=== PATIENT | male | born 1945 | race Caucasian/White ===

== ENCOUNTER 2020-02-19 09:43 | Observation (INO) | payer MEDICARE, OTHER ==
[2020-02-19] MEDS ORDERED: BABY ASPIRIN 81 MG CHEW PO ONE (10:16)
--- NOTE | 2020-02-19 10:16 | ERPHSYRPT ---
- History of Present Illness Time Seen by Provider: 02/19/20 09:50 Historian: patient Patient Subjective Stated Complaint: Pt states "I have been under allot of stress and I woke up this morning around 0500 with pain in my chest. It feels like I have been hit in the chest with a board." Triage Nursing Assessment: Pt presented alert and oriented X 3, skin pwd. pt ambulates with an upright steady gait, able to speak in clear ufll sentencs pt in no apparent respiratory distress. Physician History: Patient is a 74-year-old male who presents to our ED for evaluation of chest pain. Chest pain started at 5 AM. Patient described pain as an ache that is localized. Pain is associated with shortness of breath and numbness noted to his right arm. Symptoms have been constant. No nausea or vomiting. No diaphoresis. No trauma. No fever. Symptoms are mild to moderate in intensity. No specific worsening or improving factors. Patient's last cardiac stress test was "a long time ago". Patient voices no other complaints or concerns at this time. Timing/Duration: today Activities at Onset: none Quality: aching Location: substernal Chest Pain Radiation: arm Severity of Pain-Max: moderate Severity of Pain-Current: moderate Modifying Factors: Improves With: nothing Associated Symptoms: shortness of breath Prior Chest Pain/Cardiac Workup: no prior chest pain Nitro Today/Relief: no nitro taken today Aspirin Treatment Today: 81 mg x 4 Allergies/Adverse Reactions: No Known Drug Allergies Allergy (Verified 02/19/20 09:56) Home Medications: Colesevelam HCl [Welchol] 3.75 gm PO DAILY 02/19/20 [History] LORazepam [Lorazepam] 2 mg PO DAILY 02/19/20 [History] Tamsulosin HCl 0.4 mg PO DAILY 02/19/20 [History] Triamcinolone 0.1% Cream [Kenalog 0.1% Cream 15 gm] 15 gm TOP DAILY 02/19/20 [History] Hx Tetanus, Diphtheria Vaccination/Date Given: Yes Hx Influenza Vaccination/Date Given: Yes Hx Pneumococcal Vaccination/Date Given: Yes Immunizations Up to Date: Yes Travel Risk - International Travel Have you traveled outside of the country in past 3 weeks: No - Coronavirus Screening Are you exhibiting any of the following symptoms?: No Close contact with a COVID-19 positive Pt in past 14-21 Days: Yes - Review of Systems Constitutional: No Symptoms, No Fever, No Chills Eyes: No Symptoms Ears, Nose, & Throat: No Symptoms Respiratory: No Symptoms, No Cough, No Dyspnea Cardiac: No Symptoms, No Chest Pain, No Edema, No Syncope Abdominal/Gastrointestinal: No Symptoms, No Abdominal Pain, No Nausea, No Vomiting, No Diarrhea Genitourinary Symptoms: No Symptoms, No Dysuria Musculoskeletal: No Symptoms, No Back Pain, No Neck Pain Skin: No Symptoms, No Rash Neurological: No Symptoms, No Dizziness, No Focal Weakness, No Sensory Changes Psychological: No Symptoms Endocrine: No Symptoms Hematologic/Lymphatic: No Symptoms Immunological/Allergic: No Symptoms All Other Systems: Reviewed and Negative - Past Medical History Pertinent Past Medical History: Yes Neurological History: No Pertinent History ENT History: No Pertinent History Cardiac History: No Pertinent History Respiratory History: COPD Endocrine Medical History: No Pertinent History Musculoskeletal History: Arthritis GI Medical History: No Pertinent History History: Renal Disease Psycho-Social History: Anxiety, Depression Male Reproductive Disorders: No Pertinent History - Past Surgical History Past Surgical History: Yes Other Surgical History: salivary gland. cheryle - Social History Smoking Status: Former smoker Exposure to second hand smoke: No Drug Use: none Patient Lives Alone: No - Nursing Vital Signs Nursing Vital Signs: Initial Vital Signs Temperature 98.3 F 02/19/20 09:46 Pulse Rate 90 02/19/20 09:46 Respiratory Rate 22 02/19/20 09:46 Blood Pressure 161/107 02/19/20 09:46 O2 Sat by Pulse Oximetry 100 02/19/20 09:46 Pain Scale Pain Intensity 4 - Physical Exam General Appearance: no apparent distress, alert Eye Exam: PERRL/EOMI, eyes nml inspection Ears, Nose, Throat Exam: normal ENT inspection, moist mucous membranes Neck Exam: normal inspection, non-tender, supple, full range of motion Respiratory Exam: normal breath sounds, lungs clear, No respiratory distress Cardiovascular Exam: regular rate/rhythm, normal heart sounds Gastrointestinal/Abdomen Exam: soft, No tenderness, No mass Back Exam: normal inspection, No CVA tenderness, No vertebral tenderness Extremity Exam: normal inspection, normal range of motion Neurologic Exam: alert, oriented x 3, cooperative, normal mood/affect, sensation nml, No motor deficits Skin Exam: normal color, warm, dry Lymphatic Exam: No adenopathy SpO2 Interpretation: normal SpO2: 100 O2 Delivery: Room Air - Course Nursing assessment & vital signs reviewed: Yes EKG Interpreted by Me: RATE (92), Sinus Rhythm, NORMAL AXIS, NORMAL INTERVALS - Radiology Exams Chest X-ray Interpretation: Teleradiologist Report (No new acute findings) Ordered Tests: Active Orders 24 hr Category Date Time Status Lathe Hand STAT Care 02/19/20 09:46 Active EKG-ER Only STAT Care 02/19/20 09:44 Active IV Insertion STAT Care 02/19/20 09:44 Active Pulse Oximetry (ED) STAT Care 02/19/20 09:44 Active CHEST 1 VIEW (PORTABLE) Stat Exams 02/19/20 09:45 Completed CBC W DIFF Stat Lab 02/19/20 10:32 Completed CMP Stat Lab 02/19/20 10:32 Completed MAGNESIUM Stat Lab 02/19/20 10:32 Completed NT PRO BNP Stat Lab 02/19/20 10:32 Completed TROPONIN Q3H Lab 02/19/20 10:32 Completed TROPONIN Q3H Lab 02/19/20 12:45 Ordered TROPONIN Q3H Lab 02/19/20 15:45 Ordered TROPONIN Q3H Lab 02/19/20 18:45 Ordered TROPONIN Q3H Lab 02/19/20 21:45 Ordered UA W/RFX UR CULTURE Stat Lab 02/19/20 11:24 Ordered Transfer Order Routine Transfer 02/19/20 Ordered Medication Summary Discontinued Medications Generic Name Dose Route Start Last Admin Trade Name Freq PRN Reason Stop Dose Admin Aspirin 324 mg 02/19/20 10:16 02/19/20 10:19 Baby Aspirin 81 Mg Chew PO 02/19/20 10:17 324 mg STAT ONE Administration Aspirin Confirm 02/19/20 10:18 Baby Aspirin 81 Mg Chew Administered 02/19/20 10:19 Dose 324 mg .ROUTE .STK-MED ONE Morphine Sulfate 2 mg 02/19/20 11:45 02/19/20 11:48 Morphine Sulfate 2 Mg Inj IV 02/19/20 11:46 2 mg STAT ONE Administration Morphine Sulfate Confirm 02/19/20 11:47 Morphine Sulfate 2 Mg Inj Administered 02/19/20 11:48 Dose 2 mg .ROUTE .STK-MED ONE Lab/Rad Data: Laboratory Result Diagrams 02/19/20 10:32 02/19/20 10:32 Laboratory Results 02/19/20 02/19/20 02/19/20 Range/Units 11:39 10:32 10:32 WBC (4.0-10.5) K/mm3 RBC (4.1-5.6) M/mm3 Hgb (12.5-18.0) gm/dl Hct (42-50) % MCV (78-100) fl MCH (26-32) pg MCHC (32-36) g/dl RDW (11.5-14.0) % Plt Count (150-450) K/mm3 MPV (7.5-11.0) fl Gran % (36.0-66.0) % Eos # (Auto) (0-0.5) Absolute Lymphs (auto) (1.0-4.6) Absolute Monos (auto) (0.0-1.3) Lymphocytes % (24.0-44.0) % Monocytes % (0.0-12.0) % Eosinophils % (0.00-5.0) % Basophils % (0.0-0.4) % Absolute Granulocytes (1.4-6.9) Basophils # (0-0.4) Sodium 137 (137-145) mmol/L Potassium 4.3 (3.5-5.1) mmol/L Chloride 108 H (98-107) mmol/L Carbon Dioxide 24 (22-30) mmol/L Anion Gap 9.0 (5-15) MEQ/L BUN 23 H (9-20) mg/dL Creatinine 1.43 H (0.66-1.25) mg/dL Estimated GFR 51.4 ML/MIN Glucose 100 (74-106) mg/dL Calcium 9.3 (8.4-10.2) mg/dL Magnesium 2.4 H (1.6-2.3) mg/dL Total Bilirubin 0.50 (0.2-1.3) mg/dL AST 19 (17-59) U/L ALT 14 (0-50) U/L Alkaline Phosphatase 69 (38-126) U/L Troponin I < 0.012 (0.000-0.034) ng/mL NT-Pro-B Natriuret Pep 120 (0-900) pg/mL Serum Total Protein 6.8 (6.3-8.2) g/dL Albumin 3.8 (3.5-5.0) g/dL SARS-CoV-2 (PCR) NEGATIVE (NEGATIVE) 02/19/20 Range/Units 10:32 WBC 9.2 (4.0-10.5) K/mm3 RBC 4.78 (4.1-5.6) M/mm3 Hgb 14.9 (12.5-18.0) gm/dl Hct 45.3 (42-50) % MCV 94.8 (78-100) fl MCH 31.2 (26-32) pg MCHC 32.9 (32-36) g/dl RDW 13.7 (11.5-14.0) % Plt Count 207 (150-450) K/mm3 MPV 9.0 (7.5-11.0) fl Gran % 80.5 H (36.0-66.0) % Eos # (Auto) 0.04 (0-0.5) Absolute Lymphs (auto) 1.03 (1.0-4.6) Absolute Monos (auto) 0.71 (0.0-1.3) Lymphocytes % 11.2 L (24.0-44.0) % Monocytes % 7.7 (0.0-12.0) % Eosinophils % 0.4 (0.00-5.0) % Basophils % 0.2 (0.0-0.4) % Absolute Granulocytes 7.40 H (1.4-6.9) Basophils # 0.02 (0-0.4) Sodium (137-145) mmol/L Potassium (3.5-5.1) mmol/L Chloride (98-107) mmol/L Carbon Dioxide (22-30) mmol/L Anion Gap (5-15) MEQ/L BUN (9-20) mg/dL Creatinine (0.66-1.25) mg/dL Estimated GFR ML/MIN Glucose (74-106) mg/dL Calcium (8.4-10.2) mg/dL Magnesium (1.6-2.3) mg/dL Total Bilirubin (0.2-1.3) mg/dL AST (17-59) U/L ALT (0-50) U/L Alkaline Phosphatase (38-126) U/L Troponin I (0.000-0.034) ng/mL NT-Pro-B Natriuret Pep (0-900) pg/mL Serum Total Protein (6.3-8.2) g/dL Albumin (3.5-5.0) g/dL SARS-CoV-2 (PCR) (NEGATIVE) - Progress Progress: improved Air Movement: good Progress Note: 02/19/20 11:33 Patient reassessed. Chest pain improved. Vitals stable. In light of patient's age symptomology and lack of recent cardiac work-up/cardiac stress test we will admit patient for a cardiac rule out. Plan of care discussed with patient. He agrees to admission to [facility] for further evaluation. Case discussed with Dr. Hernandez covering Dr. Sher who accepts admission to observation. We will COVID test patient prior to transfer to floor. Blood Culture(s) Obtained: No Antibiotics given: No Discussed with Dr.: Federico Will see patient in: hospital (observation) Counseled pt/family regarding: lab results, rad results - Departure Departure Disposition: Observation Clinical Impression: ACS (acute coronary syndrome), Renal insufficiency Condition: Stable Critical Care Time: No Referrals: SONY SHER MD [Primary Care Provider] -
[2020-02-19] MEDS ORDERED: BABY ASPIRIN 81 MG CHEW ONE (10:18)
--- NOTE | 2020-02-19 10:19 | XRAY ---
Indication: Chest pain. Suspect Covid 19 exposure from . Comparison: November 15, 2019. Portable chest again demonstrates normal heart and lungs with incidental tortuous descending aorta. Bony thorax intact again with mild degenerative changes. No new/acute findings.
[2020-02-19 10:41] LABS: BASOPHIL % 0.2 % (0.0-0.4); Basophil (Absolute #) 0.02 (0-0.4); Eosinophil % 0.4 % (0.00-5.0); Eosinophil (Absolute #) 0.04 (0-0.5); Hematocrit 45.3 % (42-50); Hemoglobin 14.9 gm/dl (12.5-18.0); Lymphocyte (Absolute #) 1.03 (1.0-4.6); Lymphocytes % 11.2 % (24.0-44.0); Mean Cell Volume 94.8 fl (78-100); Mean Corpuscular Hemoglobin 31.2 pg (26-32); Mean Corpuscular Hgb Concent. 32.9 g/dl (32-36); Monocyte (Absolute #) 0.71 (0.0-1.3); Monocytes % 7.7 % (0.0-12.0); Neutrophil % 80.5 % (36.0-66.0); Platelet Count 207 K/mm3 (150-450); Red Blood Count 4.78 M/mm3 (4.1-5.6); Red Cell Distribution Width 13.7 % (11.5-14.0); White Blood Count 9.2 K/mm3 (4.0-10.5)
[2020-02-19 10:59] LABS: ALBUMIN 3.8 g/dL (3.5-5.0); BILIRUBIN,TOTAL 0.5 mg/dL (0.2-1.3); Calcium 9.3 mg/dL (8.4-10.2); Creatinine 1 1.43 mg/dL (0.66-1.25); EST GLOMERULAR FILTRATION RATE 51.4 ML/MIN; MAGNESIUM 2.4 mg/dL (1.6-2.3); Potassium 4.3 mmol/L (3.5-5.1); Total Protein 6.8 g/dL (6.3-8.2)
[2020-02-19 11:36] LABS: Appearance CLEAR (CLEAR); Bilirubin NEGATIVE (NEGATIVE); Blood NEGATIVE Ery/ul (0-5); Glucose NEGATIVE (NEGATIVE); Ketones NEGATIVE (NEGATIVE); Leukocyte Esterase NEGATIVE (NEGATIVE); Nitrite NEGATIVE (NEGATIVE); Protein,Urine Dip NEGATIVE (Negative); Specific Gravity 1.008 (1.005-1.025); Urobilinogen NEGATIVE mg/dL (0-1)
[2020-02-19] MEDS ORDERED: MORPHINE SULFATE 2 MG INJ IV ONE (11:45)
[2020-02-19] MEDS ORDERED: MORPHINE SULFATE 2 MG INJ ONE (11:47)
[2020-02-19 13:03] LABS: Bacteria NONE SEEN /HPF (NEGATIVE)
[2020-02-19] MEDS ORDERED: Senokot-S Tablet PO PRN (13:07)
[2020-02-19] MEDS ORDERED: MILK OF MAGNESIA 30 ML PO PRN (13:07)
[2020-02-19] MEDS ORDERED: Zofran 4 MG/2 ML VIAL IV PRN (13:07)
[2020-02-19] MEDS ORDERED: MAALOX ES 30 ML UNIT DOSE PO PRN (13:07)
[2020-02-19] MEDS ORDERED: TYLENOL 325 MG PO PRN (13:07)
[2020-02-19] MEDS ORDERED: GI COCKTAIL 45 ML (Maalox/Lidocaine) PO ONE (20:11)
[2020-02-19] MEDS ORDERED: MAALOX ES 30 ML UNIT DOSE ONE (20:18)
[2020-02-19] MEDS ORDERED: XYLOCAINE HCl Viscous ONE (20:18)
[2020-02-19] MEDS ORDERED: Ativan 1 MG PO SCH (22:00)
[2020-02-19] MEDS ORDERED: Flomax 0.4 MG PO SCH (22:00)
[2020-02-19] MEDS ORDERED: PROTONIX 40 MG IV IV SCH (22:00)
[2020-02-19] MEDS ORDERED: BENADRYL 25 MG CAPSULE PO SCH (22:00)
[2020-02-19] MEDS ORDERED: NON-FORMULARY ITEM (Lorazepam [Lorazepam] 2 MG) PO SCH (22:00)
[2020-02-19] MEDS: Carafate SUSPENSION 1000 MG/10 ML PO SCH (22:10)
[2020-02-20 05:35] LABS: Risk Ratio 3.3
[2020-02-20] MEDS: Carafate SUSPENSION 1000 MG/10 ML PO SCH (06:39)
[2020-02-20 07:04] VITALS: BP 143/74; PULSE 86; O2SAT 96
--- NOTE | 2020-02-20 08:30 | PCM.SSS ---
History of Present Illness - Chief Complaint Chief Complaint: ACS, Renal Insufficiency History of Present Illness: is a 74 year old male who woke yesterday morning at 5am with pain in his chest, felt a soreness as if he had been hit with a board. He was short of breath and nauseated, no vomiting and no diaphoresis. He still has a mild dull ache but no shortness of breath, no cough, no fever, no oxygen requirement. He admits that he feels like he had a panic attack, his has been battling covid for 10 weeks, has had multiple strokes, kidney failure and has been critically ill. - Review of Systems Constitutional: No Fever, No Chills Respiratory: No Cough, No Short Of Breath Cardiac: Chest Pain Abdominal/Gastrointestinal: No Abdominal Pain, No Nausea, No Vomiting, No Diarrhea Skin: No Symptoms, No Rash All Other Systems: Reviewed and Negative Medications & Allergies Home Medications: Home Medication List Colesevelam HCl [Welchol] 1,875 mg PO DAILY 02/19/20 [History Confirmed 02/19/20] Diphenhydramine HCl 25 mg [Benadryl 25 mg Capsule] 25 mg PO QHS 02/19/20 [History Confirmed 02/19/20] LORazepam [Lorazepam] 2 mg PO QHS 02/19/20 [History Confirmed 02/19/20] Tamsulosin HCl 0.4 mg PO QHS 02/19/20 [History Confirmed 02/19/20] Triamcinolone 0.1% Cream [Kenalog 0.1% Cream 15 gm] 15 gm TOP DAILY 02/19/20 [History Confirmed 02/19/20] Escitalopram Oxalate 10 mg [Lexapro 10 MG] 10 mg PO DAILY #30 tablet 02/20/20 [Rx] Allergies/Adverse Reactions: Allergies Allergy/AdvReac Type Severity Reaction Status Date / Time No Known Drug Allergies Allergy Verified 02/19/20 09:56 - Past Medical History Past Medical History: Yes Neurological History: No Pertinent History ENT History: No Pertinent History Cardiac History: No Pertinent History Respiratory History: COPD Endocrine Medical History: No Pertinent History Musculoskelatal History: Arthritis GI Medical History: No Pertinent History History: Renal Disease Pyscho-Social History: Anxiety, Depression Male Reproductive Disorders: No Pertinent History - Past Surgical History Past Surgical History: Yes Neuro Surgical History: No Pertinent History Cardiac History: No Pertinent History Respiratory Surgery: No Pertinent History GI Surgical History: Cholecystectomy Genitourinary Surgical Hx: No Pertinent History Musculskeletal Surgical Hx: No Pertinent History Male Surgical History: No Pertinent History Other Surgical History: salivary gland - Social History Smoking Status: Former smoker Exposure to second hand smoke: No Alcohol: None Drug Use: none - Physical Exam Vital Signs: Vital Signs - 24 hr Temp Pulse Pulse Resp BP Pulse Ox 02/20/20 07:02 99.4 F 86 18 143/74 96 02/20/20 04:00 98.0 F 90 18 140/75 97 02/19/20 23:41 98.9 F 89 18 105/58 97 02/19/20 20:00 98.2 F 81 18 119/67 98 02/19/20 16:00 99.0 F 87 18 132/74 98 02/19/20 14:06 98.2 F 58 L 16 104/58 100 02/19/20 13:30 98.0 F 82 20 143/70 100 02/19/20 13:28 98.0 F 82 20 143/70 100 02/19/20 13:20 98.2 F 83 143/70 100 02/19/20 12:58 100 02/19/20 12:30 83 20 158/112 98 02/19/20 11:41 98.2 F 82 20 147/101 98 02/19/20 10:47 98.2 F 82 20 154/98 97 02/19/20 09:46 98.3 F 95 H 90 22 161/107 100 General Appearance: no apparent distress, alert, anxiety Neurologic Exam: alert, oriented x 3 Respiratory Exam: normal breath sounds, lungs clear, No respiratory distress Cardiovascular Exam: regular rate/rhythm, normal heart sounds, normal peripheral pulses Gastrointestinal/Abdomen Exam: soft, normal bowel sounds, No tenderness, No mass Results - Labs Lab/Micro Results: Lab Results-Last 24 Hours 02/19/20 02/19/20 02/19/20 Range/Units 10:32 10:32 10:32 WBC 9.2 (4.0-10.5) K/mm3 RBC 4.78 (4.1-5.6) M/mm3 Hgb 14.9 (12.5-18.0) gm/dl Hct 45.3 (42-50) % MCV 94.8 (78-100) fl MCH 31.2 (26-32) pg MCHC 32.9 (32-36) g/dl RDW 13.7 (11.5-14.0) % Plt Count 207 (150-450) K/mm3 MPV 9.0 (7.5-11.0) fl Gran % 80.5 H (36.0-66.0) % Eos # (Auto) 0.04 (0-0.5) Absolute Lymphs (auto) 1.03 (1.0-4.6) Absolute Monos (auto) 0.71 (0.0-1.3) Lymphocytes % 11.2 L (24.0-44.0) % Monocytes % 7.7 (0.0-12.0) % Eosinophils % 0.4 (0.00-5.0) % Basophils % 0.2 (0.0-0.4) % Absolute Granulocytes 7.40 H (1.4-6.9) Basophils # 0.02 (0-0.4) Sodium 137 (137-145) mmol/L Potassium 4.3 (3.5-5.1) mmol/L Chloride 108 H (98-107) mmol/L Carbon Dioxide 24 (22-30) mmol/L Anion Gap 9.0 (5-15) MEQ/L BUN 23 H (9-20) mg/dL Creatinine 1.43 H (0.66-1.25) mg/dL Estimated GFR 51.4 ML/MIN Glucose 100 (74-106) mg/dL Calcium 9.3 (8.4-10.2) mg/dL Magnesium 2.4 H (1.6-2.3) mg/dL Total Bilirubin 0.50 (0.2-1.3) mg/dL AST 19 (17-59) U/L ALT 14 (0-50) U/L Alkaline Phosphatase 69 (38-126) U/L Troponin I < 0.012 (0.000-0.034) ng/mL NT-Pro-B Natriuret Pep 120 (0-900) pg/mL Serum Total Protein 6.8 (6.3-8.2) g/dL Albumin 3.8 (3.5-5.0) g/dL Triglycerides (30-150) mg/dL Cholesterol (50-200) mg/dL LDL Cholesterol (30-100) mg/dL HDL Cholesterol (40-60) mg/dL Heart Disease Risk Ratio Urine Color (YELLOW) Urine Appearance (CLEAR) Urine pH (5-6) Ur Specific Dexter (1.005-1.025) Urine Protein (Negative) Urine Ketones (NEGATIVE) Urine Blood (0-5) Victoriano/ul Urine Nitrite (NEGATIVE) Urine Bilirubin (NEGATIVE) Urine Urobilinogen (0-1) mg/dL Ur Leukocyte Esterase (NEGATIVE) Urine WBC (Auto) (0-5) /HPF Urine RBC (Auto) (0-2) /HPF U Epithel Cells (Auto) (FEW) /HPF Urine Bacteria (Auto) (NEGATIVE) /HPF Urine Culture Reflexed (NO) Urine Glucose (NEGATIVE) mg/dL SARS-CoV-2 (PCR) (NEGATIVE) 02/19/20 02/19/20 02/19/20 Range/Units 11:24 11:39 12:50 WBC (4.0-10.5) K/mm3 RBC (4.1-5.6) M/mm3 Hgb (12.5-18.0) gm/dl Hct (42-50) % MCV (78-100) fl MCH (26-32) pg MCHC (32-36) g/dl RDW (11.5-14.0) % Plt Count (150-450) K/mm3 MPV (7.5-11.0) fl Gran % (36.0-66.0) % Eos # (Auto) (0-0.5) Absolute Lymphs (auto) (1.0-4.6) Absolute Monos (auto) (0.0-1.3) Lymphocytes % (24.0-44.0) % Monocytes % (0.0-12.0) % Eosinophils % (0.00-5.0) % Basophils % (0.0-0.4) % Absolute Granulocytes (1.4-6.9) Basophils # (0-0.4) Sodium (137-145) mmol/L Potassium (3.5-5.1) mmol/L Chloride (98-107) mmol/L Carbon Dioxide (22-30) mmol/L Anion Gap (5-15) MEQ/L BUN (9-20) mg/dL Creatinine (0.66-1.25) mg/dL Estimated GFR ML/MIN Glucose (74-106) mg/dL Calcium (8.4-10.2) mg/dL Magnesium (1.6-2.3) mg/dL Total Bilirubin (0.2-1.3) mg/dL AST (17-59) U/L ALT (0-50) U/L Alkaline Phosphatase (38-126) U/L Troponin I < 0.012 (0.000-0.034) ng/mL NT-Pro-B Natriuret Pep (0-900) pg/mL Serum Total Protein (6.3-8.2) g/dL Albumin (3.5-5.0) g/dL Triglycerides (30-150) mg/dL Cholesterol (50-200) mg/dL LDL Cholesterol (30-100) mg/dL HDL Cholesterol (40-60) mg/dL Heart Disease Risk Ratio Urine Color YELLOW (YELLOW) Urine Appearance CLEAR (CLEAR) Urine pH 7.0 (5-6) Ur Specific Dexter 1.008 (1.005-1.025) Urine Protein NEGATIVE (Negative) Urine Ketones NEGATIVE (NEGATIVE) Urine Blood NEGATIVE (0-5) Victoriano/ul Urine Nitrite NEGATIVE (NEGATIVE) Urine Bilirubin NEGATIVE (NEGATIVE) Urine Urobilinogen NEGATIVE (0-1) mg/dL Ur Leukocyte Esterase NEGATIVE (NEGATIVE) Urine WBC (Auto) NONE (0-5) /HPF Urine RBC (Auto) NONE (0-2) /HPF U Epithel Cells (Auto) NONE (FEW) /HPF Urine Bacteria (Auto) NONE SEEN (NEGATIVE) /HPF Urine Culture Reflexed NO (NO) Urine Glucose NEGATIVE (NEGATIVE) mg/dL SARS-CoV-2 (PCR) NEGATIVE (NEGATIVE) 02/19/20 02/19/20 02/19/20 Range/Units 15:25 19:15 21:44 WBC (4.0-10.5) K/mm3 RBC (4.1-5.6) M/mm3 Hgb (12.5-18.0) gm/dl Hct (42-50) % MCV (78-100) fl MCH (26-32) pg MCHC (32-36) g/dl RDW (11.5-14.0) % Plt Count (150-450) K/mm3 MPV (7.5-11.0) fl Gran % (36.0-66.0) % Eos # (Auto) (0-0.5) Absolute Lymphs (auto) (1.0-4.6) Absolute Monos (auto) (0.0-1.3) Lymphocytes % (24.0-44.0) % Monocytes % (0.0-12.0) % Eosinophils % (0.00-5.0) % Basophils % (0.0-0.4) % Absolute Granulocytes (1.4-6.9) Basophils # (0-0.4) Sodium (137-145) mmol/L Potassium (3.5-5.1) mmol/L Chloride (98-107) mmol/L Carbon Dioxide (22-30) mmol/L Anion Gap (5-15) MEQ/L BUN (9-20) mg/dL Creatinine (0.66-1.25) mg/dL Estimated GFR ML/MIN Glucose (74-106) mg/dL Calcium (8.4-10.2) mg/dL Magnesium (1.6-2.3) mg/dL Total Bilirubin (0.2-1.3) mg/dL AST (17-59) U/L ALT (0-50) U/L Alkaline Phosphatase (38-126) U/L Troponin I < 0.012 < 0.012 < 0.012 (0.000-0.034) ng/mL NT-Pro-B Natriuret Pep (0-900) pg/mL Serum Total Protein (6.3-8.2) g/dL Albumin (3.5-5.0) g/dL Triglycerides (30-150) mg/dL Cholesterol (50-200) mg/dL LDL Cholesterol (30-100) mg/dL HDL Cholesterol (40-60) mg/dL Heart Disease Risk Ratio Urine Color (YELLOW) Urine Appearance (CLEAR) Urine pH (5-6) Ur Specific Dexter (1.005-1.025) Urine Protein (Negative) Urine Ketones (NEGATIVE) Urine Blood (0-5) Victoriano/ul Urine Nitrite (NEGATIVE) Urine Bilirubin (NEGATIVE) Urine Urobilinogen (0-1) mg/dL Ur Leukocyte Esterase (NEGATIVE) Urine WBC (Auto) (0-5) /HPF Urine RBC (Auto) (0-2) /HPF U Epithel Cells (Auto) (FEW) /HPF Urine Bacteria (Auto) (NEGATIVE) /HPF Urine Culture Reflexed (NO) Urine Glucose (NEGATIVE) mg/dL SARS-CoV-2 (PCR) (NEGATIVE) 02/20/20 Range/Units 05:02 WBC (4.0-10.5) K/mm3 RBC (4.1-5.6) M/mm3 Hgb (12.5-18.0) gm/dl Hct (42-50) % MCV (78-100) fl MCH (26-32) pg MCHC (32-36) g/dl RDW (11.5-14.0) % Plt Count (150-450) K/mm3 MPV (7.5-11.0) fl Gran % (36.0-66.0) % Eos # (Auto) (0-0.5) Absolute Lymphs (auto) (1.0-4.6) Absolute Monos (auto) (0.0-1.3) Lymphocytes % (24.0-44.0) % Monocytes % (0.0-12.0) % Eosinophils % (0.00-5.0) % Basophils % (0.0-0.4) % Absolute Granulocytes (1.4-6.9) Basophils # (0-0.4) Sodium (137-145) mmol/L Potassium (3.5-5.1) mmol/L Chloride (98-107) mmol/L Carbon Dioxide (22-30) mmol/L Anion Gap (5-15) MEQ/L BUN (9-20) mg/dL Creatinine (0.66-1.25) mg/dL Estimated GFR ML/MIN Glucose (74-106) mg/dL Calcium (8.4-10.2) mg/dL Magnesium (1.6-2.3) mg/dL Total Bilirubin (0.2-1.3) mg/dL AST (17-59) U/L ALT (0-50) U/L Alkaline Phosphatase (38-126) U/L Troponin I (0.000-0.034) ng/mL NT-Pro-B Natriuret Pep (0-900) pg/mL Serum Total Protein (6.3-8.2) g/dL Albumin (3.5-5.0) g/dL Triglycerides 78 (30-150) mg/dL Cholesterol 146 (50-200) mg/dL LDL Cholesterol 76 (30-100) mg/dL HDL Cholesterol 45 (40-60) mg/dL Heart Disease Risk Ratio 3.3 Urine Color (YELLOW) Urine Appearance (CLEAR) Urine pH (5-6) Ur Specific Dexter (1.005-1.025) Urine Protein (Negative) Urine Ketones (NEGATIVE) Urine Blood (0-5) Victoriano/ul Urine Nitrite (NEGATIVE) Urine Bilirubin (NEGATIVE) Urine Urobilinogen (0-1) mg/dL Ur Leukocyte Esterase (NEGATIVE) Urine WBC (Auto) (0-5) /HPF Urine RBC (Auto) (0-2) /HPF U Epithel Cells (Auto) (FEW) /HPF Urine Bacteria (Auto) (NEGATIVE) /HPF Urine Culture Reflexed (NO) Urine Glucose (NEGATIVE) mg/dL SARS-CoV-2 (PCR) (NEGATIVE) - Radiology Impressions Radiology Exams & Impressions: Radiology Procedures Category Date Time Status CHEST 1 VIEW (PORTABLE) Stat Exams 02/19/20 09:45 Completed - Other Procedures and Tests Respiratory Therapy 02/20/20 05:00 EKG DAILY 02/21/20 05:00 EKG DAILY 02/22/20 05:00 EKG DAILY Assessment/Plan (1) Chest pain Current Visit: Yes Status: Acute Assessment & Plan: SD ruled out, lipids are good. recommend outpatient stress test but symptoms appear anxiety related with current situation Code(s): R07.9 - CHEST PAIN, UNSPECIFIED (2) Anxiety Current Visit: Yes Status: Acute Assessment & Plan: Soy appears anxious and depressed and ascribes to feeling depressed. will start on lexapro and f/u in the office Code(s): F41.9 - ANXIETY DISORDER, UNSPECIFIED Hospital Summary - Vitals & Intake/Output Vital Signs: Vital Signs Temperature 99.4 F 02/20/20 07:02 Pulse Rate 86 02/20/20 07:02 Respiratory Rate 18 02/20/20 07:02 Blood Pressure 143/74 02/20/20 07:02 O2 Sat by Pulse Oximetry 96 02/20/20 07:02 Intake & Output: Intake & Output 10/18/20 10/19/20 10/20/20 10/21/20 11:59 11:59 11:59 11:59 Intake Total 240 Balance 240 Weight 74.933 kg 71.6 kg - Lab Result Diagrams: 02/19/20 10:32 02/19/20 10:32 Lab Results-Last 24 Hrs: Lab Results-Last 24 Hours 02/19/20 02/19/20 02/19/20 Range/Units 10:32 10:32 10:32 WBC 9.2 (4.0-10.5) K/mm3 RBC 4.78 (4.1-5.6) M/mm3 Hgb 14.9 (12.5-18.0) gm/dl Hct 45.3 (42-50) % MCV 94.8 (78-100) fl MCH 31.2 (26-32) pg MCHC 32.9 (32-36) g/dl RDW 13.7 (11.5-14.0) % Plt Count 207 (150-450) K/mm3 MPV 9.0 (7.5-11.0) fl Gran % 80.5 H (36.0-66.0) % Eos # (Auto) 0.04 (0-0.5) Absolute Lymphs (auto) 1.03 (1.0-4.6) Absolute Monos (auto) 0.71 (0.0-1.3) Lymphocytes % 11.2 L (24.0-44.0) % Monocytes % 7.7 (0.0-12.0) % Eosinophils % 0.4 (0.00-5.0) % Basophils % 0.2 (0.0-0.4) % Absolute Granulocytes 7.40 H (1.4-6.9) Basophils # 0.02 (0-0.4) Sodium 137 (137-145) mmol/L Potassium 4.3 (3.5-5.1) mmol/L Chloride 108 H (98-107) mmol/L Carbon Dioxide 24 (22-30) mmol/L Anion Gap 9.0 (5-15) MEQ/L BUN 23 H (9-20) mg/dL Creatinine 1.43 H (0.66-1.25) mg/dL Estimated GFR 51.4 ML/MIN Glucose 100 (74-106) mg/dL Calcium 9.3 (8.4-10.2) mg/dL Magnesium 2.4 H (1.6-2.3) mg/dL Total Bilirubin 0.50 (0.2-1.3) mg/dL AST 19 (17-59) U/L ALT 14 (0-50) U/L Alkaline Phosphatase 69 (38-126) U/L Troponin I < 0.012 (0.000-0.034) ng/mL NT-Pro-B Natriuret Pep 120 (0-900) pg/mL Serum Total Protein 6.8 (6.3-8.2) g/dL Albumin 3.8 (3.5-5.0) g/dL Triglycerides (30-150) mg/dL Cholesterol (50-200) mg/dL LDL Cholesterol (30-100) mg/dL HDL Cholesterol (40-60) mg/dL Heart Disease Risk Ratio Urine Color (YELLOW) Urine Appearance (CLEAR) Urine pH (5-6) Ur Specific Dexter (1.005-1.025) Urine Protein (Negative) Urine Ketones (NEGATIVE) Urine Blood (0-5) Victoriano/ul Urine Nitrite (NEGATIVE) Urine Bilirubin (NEGATIVE) Urine Urobilinogen (0-1) mg/dL Ur Leukocyte Esterase (NEGATIVE) Urine WBC (Auto) (0-5) /HPF Urine RBC (Auto) (0-2) /HPF U Epithel Cells (Auto) (FEW) /HPF Urine Bacteria (Auto) (NEGATIVE) /HPF Urine Culture Reflexed (NO) Urine Glucose (NEGATIVE) mg/dL SARS-CoV-2 (PCR) (NEGATIVE) 02/19/20 02/19/20 02/19/20 Range/Units 11:24 11:39 12:50 WBC (4.0-10.5) K/mm3 RBC (4.1-5.6) M/mm3 Hgb (12.5-18.0) gm/dl Hct (42-50) % MCV (78-100) fl MCH (26-32) pg MCHC (32-36) g/dl RDW (11.5-14.0) % Plt Count (150-450) K/mm3 MPV (7.5-11.0) fl Gran % (36.0-66.0) % Eos # (Auto) (0-0.5) Absolute Lymphs (auto) (1.0-4.6) Absolute Monos (auto) (0.0-1.3) Lymphocytes % (24.0-44.0) % Monocytes % (0.0-12.0) % Eosinophils % (0.00-5.0) % Basophils % (0.0-0.4) % Absolute Granulocytes (1.4-6.9) Basophils # (0-0.4) Sodium (137-145) mmol/L Potassium (3.5-5.1) mmol/L Chloride (98-107) mmol/L Carbon Dioxide (22-30) mmol/L Anion Gap (5-15) MEQ/L BUN (9-20) mg/dL Creatinine (0.66-1.25) mg/dL Estimated GFR ML/MIN Glucose (74-106) mg/dL Calcium (8.4-10.2) mg/dL Magnesium (1.6-2.3) mg/dL Total Bilirubin (0.2-1.3) mg/dL AST (17-59) U/L ALT (0-50) U/L Alkaline Phosphatase (38-126) U/L Troponin I < 0.012 (0.000-0.034) ng/mL NT-Pro-B Natriuret Pep (0-900) pg/mL Serum Total Protein (6.3-8.2) g/dL Albumin (3.5-5.0) g/dL Triglycerides (30-150) mg/dL Cholesterol (50-200) mg/dL LDL Cholesterol (30-100) mg/dL HDL Cholesterol (40-60) mg/dL Heart Disease Risk Ratio Urine Color YELLOW (YELLOW) Urine Appearance CLEAR (CLEAR) Urine pH 7.0 (5-6) Ur Specific Dexter 1.008 (1.005-1.025) Urine Protein NEGATIVE (Negative) Urine Ketones NEGATIVE (NEGATIVE) Urine Blood NEGATIVE (0-5) Victoriano/ul Urine Nitrite NEGATIVE (NEGATIVE) Urine Bilirubin NEGATIVE (NEGATIVE) Urine Urobilinogen NEGATIVE (0-1) mg/dL Ur Leukocyte Esterase NEGATIVE (NEGATIVE) Urine WBC (Auto) NONE (0-5) /HPF Urine RBC (Auto) NONE (0-2) /HPF U Epithel Cells (Auto) NONE (FEW) /HPF Urine Bacteria (Auto) NONE SEEN (NEGATIVE) /HPF Urine Culture Reflexed NO (NO) Urine Glucose NEGATIVE (NEGATIVE) mg/dL SARS-CoV-2 (PCR) NEGATIVE (NEGATIVE) 02/19/20 02/19/20 02/19/20 Range/Units 15:25 19:15 21:44 WBC (4.0-10.5) K/mm3 RBC (4.1-5.6) M/mm3 Hgb (12.5-18.0) gm/dl Hct (42-50) % MCV (78-100) fl MCH (26-32) pg MCHC (32-36) g/dl RDW (11.5-14.0) % Plt Count (150-450) K/mm3 MPV (7.5-11.0) fl Gran % (36.0-66.0) % Eos # (Auto) (0-0.5) Absolute Lymphs (auto) (1.0-4.6) Absolute Monos (auto) (0.0-1.3) Lymphocytes % (24.0-44.0) % Monocytes % (0.0-12.0) % Eosinophils % (0.00-5.0) % Basophils % (0.0-0.4) % Absolute Granulocytes (1.4-6.9) Basophils # (0-0.4) Sodium (137-145) mmol/L Potassium (3.5-5.1) mmol/L Chloride (98-107) mmol/L Carbon Dioxide (22-30) mmol/L Anion Gap (5-15) MEQ/L BUN (9-20) mg/dL Creatinine (0.66-1.25) mg/dL Estimated GFR ML/MIN Glucose (74-106) mg/dL Calcium (8.4-10.2) mg/dL Magnesium (1.6-2.3) mg/dL Total Bilirubin (0.2-1.3) mg/dL AST (17-59) U/L ALT (0-50) U/L Alkaline Phosphatase (38-126) U/L Troponin I < 0.012 < 0.012 < 0.012 (0.000-0.034) ng/mL NT-Pro-B Natriuret Pep (0-900) pg/mL Serum Total Protein (6.3-8.2) g/dL Albumin (3.5-5.0) g/dL Triglycerides (30-150) mg/dL Cholesterol (50-200) mg/dL LDL Cholesterol (30-100) mg/dL HDL Cholesterol (40-60) mg/dL Heart Disease Risk Ratio Urine Color (YELLOW) Urine Appearance (CLEAR) Urine pH (5-6) Ur Specific Dexter (1.005-1.025) Urine Protein (Negative) Urine Ketones (NEGATIVE) Urine Blood (0-5) Victoriano/ul Urine Nitrite (NEGATIVE) Urine Bilirubin (NEGATIVE) Urine Urobilinogen (0-1) mg/dL Ur Leukocyte Esterase (NEGATIVE) Urine WBC (Auto) (0-5) /HPF Urine RBC (Auto) (0-2) /HPF U Epithel Cells (Auto) (FEW) /HPF Urine Bacteria (Auto) (NEGATIVE) /HPF Urine Culture Reflexed (NO) Urine Glucose (NEGATIVE) mg/dL SARS-CoV-2 (PCR) (NEGATIVE) 02/20/20 Range/Units 05:02 WBC (4.0-10.5) K/mm3 RBC (4.1-5.6) M/mm3 Hgb (12.5-18.0) gm/dl Hct (42-50) % MCV (78-100) fl MCH (26-32) pg MCHC (32-36) g/dl RDW (11.5-14.0) % Plt Count (150-450) K/mm3 MPV (7.5-11.0) fl Gran % (36.0-66.0) % Eos # (Auto) (0-0.5) Absolute Lymphs (auto) (1.0-4.6) Absolute Monos (auto) (0.0-1.3) Lymphocytes % (24.0-44.0) % Monocytes % (0.0-12.0) % Eosinophils % (0.00-5.0) % Basophils % (0.0-0.4) % Absolute Granulocytes (1.4-6.9) Basophils # (0-0.4) Sodium (137-145) mmol/L Potassium (3.5-5.1) mmol/L Chloride (98-107) mmol/L Carbon Dioxide (22-30) mmol/L Anion Gap (5-15) MEQ/L BUN (9-20) mg/dL Creatinine (0.66-1.25) mg/dL Estimated GFR ML/MIN Glucose (74-106) mg/dL Calcium (8.4-10.2) mg/dL Magnesium (1.6-2.3) mg/dL Total Bilirubin (0.2-1.3) mg/dL AST (17-59) U/L ALT (0-50) U/L Alkaline Phosphatase (38-126) U/L Troponin I (0.000-0.034) ng/mL NT-Pro-B Natriuret Pep (0-900) pg/mL Serum Total Protein (6.3-8.2) g/dL Albumin (3.5-5.0) g/dL Triglycerides 78 (30-150) mg/dL Cholesterol 146 (50-200) mg/dL LDL Cholesterol 76 (30-100) mg/dL HDL Cholesterol 45 (40-60) mg/dL Heart Disease Risk Ratio 3.3 Urine Color (YELLOW) Urine Appearance (CLEAR) Urine pH (5-6) Ur Specific Dexter (1.005-1.025) Urine Protein (Negative) Urine Ketones (NEGATIVE) Urine Blood (0-5) Victoriano/ul Urine Nitrite (NEGATIVE) Urine Bilirubin (NEGATIVE) Urine Urobilinogen (0-1) mg/dL Ur Leukocyte Esterase (NEGATIVE) Urine WBC (Auto) (0-5) /HPF Urine RBC (Auto) (0-2) /HPF U Epithel Cells (Auto) (FEW) /HPF Urine Bacteria (Auto) (NEGATIVE) /HPF Urine Culture Reflexed (NO) Urine Glucose (NEGATIVE) mg/dL SARS-CoV-2 (PCR) (NEGATIVE) - Radiology Exams Ordered Rad Exams-Entire Visit: Radiology Procedures Category Date Time Status CHEST 1 VIEW (PORTABLE) Stat Exams 02/19/20 09:45 Completed - Procedures and Test Procedures and Tests throughout Hospitalization: Therapy Orders & Screens 02/19/20 13:07 EKG [id number],PRN Comment: 02/19/20 19:44 EKG ONCE Comment: Diagnosis: ACS, Renal Insufficiency 02/20/20 05:00 EKG DAILY Comment: Diagnosis: ACS, Renal Insufficiency 02/21/20 05:00 EKG DAILY Comment: Diagnosis: ACS, Renal Insufficiency 02/22/20 05:00 EKG DAILY Comment: Diagnosis: ACS, Renal Insufficiency - Discharge Disposition: Home, Self-Care Condition: Stable Prescriptions: New Escitalopram Oxalate 10 mg [Lexapro 10 MG] 10 mg PO DAILY #30 tablet Continue Triamcinolone 0.1% Cream [Kenalog 0.1% Cream 15 gm] 15 gm TOP DAILY Tamsulosin HCl 0.4 mg PO QHS LORazepam [Lorazepam] 2 mg PO QHS Colesevelam HCl [Welchol] 1,875 mg PO DAILY Diphenhydramine HCl 25 mg [Benadryl 25 mg Capsule] 25 mg PO QHS Follow up with: SONY SHER MD [Primary Care Provider] - 1 Week
[2020-02-20] MEDS ORDERED: COLESEVELAM HCL PO SCH (10:00)
[2020-02-20] MEDS ORDERED: COLESEVELAM HCL 1875 MG PO SCH (10:00)
[2020-02-20] MEDS ORDERED: KENALOG 0.1% CREAM 15 GM TOP SCH (10:00)
== END 2020-02-20 09:10 | disposition home or self-care (01) ==
LOC: ED 09:43 → MED SURG 13:06
PROVIDERS: ADMIT Family Medicine; ATTEND Family Medicine
DX: R07.9 Chest pain, unspecified (principal); F41.9 Anxiety disorder, unspecified; R11.0 Nausea; R06.02 Shortness of breath; J44.9 Chronic obstructive pulmonary disease, unspecified; Z79.899 Other long term (current) drug therapy
CPT/HCPCS: 36000; 36415; 71045; 80053; 80061; 81001; 83721; 83735; 83880; 84484; 85025; 93005; 93041; 94760; 96374; 99285; G0378; U0003; J2270; A9270-GY

== ENCOUNTER 2020-08-07 06:09 | Day surgery (SDC) | payer MEDICARE, OTHER ==
[2020-08-07] MEDS ORDERED: Lactated Ringers 1,000 ML IV SCH (06:30)
[2020-08-07] MEDS ORDERED: DIPRIVAN 200 MG/20 ML IV ONE (07:51)
[2020-08-07] MEDS ORDERED: Lactated Ringers 1,000 ML IV ONE (08:37)
[2020-08-07 09:11] VITALS: O2SAT 98
[2020-08-07 09:17] VITALS: BP 128/71; PULSE 69
--- NOTE | 2020-08-07 09:34 | OP ---
SURGERY DATE/TIME: 08/07/2020 0806 PREOPERATIVE DIAGNOSIS: Positive Cologuard. POSTOPERATIVE DIAGNOSES: 1) Normal colon. 2) Sigmoid diverticulosis. PROCEDURE: Diagnostic colonoscopy. SURGEON: Waqas Montelongo M.D. ANESTHESIA: MAC by Patrick Copeland CRNA. ESTIMATED BLOOD LOSS: None. SPECIMENS: None. DESCRIPTION OF PROCEDURE: After informed written consent was obtained, the patient was taken to the endoscopy suite. He underwent monitored anesthesia and was titrated to desired level of consciousness. A digital rectal exam showed normal sphincter tone and no internal lesions. The scope was inserted into the rectum and sequentially the entire colonic mucosa was traversed. The level of cecum was reached and verified with direct visualization of ileocecal valve. Upon entry there were scattered diverticula mostly in the sigmoid colon which were encountered and noted but no other mucosal abnormalities. Upon withdrawal careful mucosal inspection revealed no gross abnormalities. No polyps or other mucosal abnormalities were encountered other than diverticulosis. Again, most was centered in the sigmoid colon. There was no obvious bleeding and no other abnormalities were encountered. Prior to withdrawal retroflexion was performed and showed no internal lesions. The scope was removed and the patient was transferred to the recovery room in good condition.
== END 2020-08-07 08:27 | disposition home or self-care (01) ==
LOC: SDC 06:09
PROVIDERS: ATTEND Family Medicine
DX: K57.30 Diverticulosis of large intestine without perforation or abscess without bleeding (principal); R19.5 Other fecal abnormalities; I10 Essential (primary) hypertension; Z79.899 Other long term (current) drug therapy
CPT/HCPCS: 99100; J2704

== ENCOUNTER 2020-09-25 06:10 | Day surgery (SDC) | payer MEDICARE, OTHER ==
[2020-09-25] MEDS ORDERED: Lactated Ringers 1,000 ML IV SCH (06:30)
[2020-09-25] MEDS ORDERED: Versed 2 MG/2 ML Injection ONE (07:56)
[2020-09-25] MEDS ORDERED: DIPRIVAN 200 MG/20 ML IV ONE (07:56)
--- NOTE | 2020-09-25 09:04 | OP ---
SURGERY DATE/TIME: 09/25/2020 0805 PREOPERATIVE DIAGNOSIS: Epigastric abdominal pain. POSTOPERATIVE DIAGNOSIS: Hiatal hernia. PROCEDURE: EGD. SURGEON: Waqas Montelongo M.D. ANESTHESIA: MAC by Patrick Copeland CRNA. ESTIMATED BLOOD LOSS: None. SPECIMENS: None. DESCRIPTION OF PROCEDURE: After informed written consent was obtained, the patient was taken to the endoscopy suite. He was placed in left lateral decubitus position and had a bite block was inserted. Anesthesia was titrated to the desired level of consciousness and the endoscope was inserted into the posterior oropharynx. Under direct visualization the esophagus was traversed. There were normal appearance of the esophageal mucosa with no lesions or abnormalities were encountered. Upon entering the stomach, normal rugated gastric mucosa revealed no obvious lesions or abnormalities. The pylorus was traversed and the duodenum had a normal mucosal appearance. No ulcerations or evidence of abnormalities were encountered. Again upon withdrawal, the gastric mucosa appeared within normal limits. There was a small hiatal hernia appreciable upon withdrawal through the gastroesophageal junction. There were no obvious mucosal changes to the gastroesophageal junction or the esophageal mucosa distally. The scope was removed and the patient was transferred to the recovery room in good condition.
[2020-09-25 09:21] VITALS: O2SAT 98
[2020-09-25 09:34] VITALS: BP 125/84; PULSE 69
== END 2020-09-25 09:30 | disposition home or self-care (01) ==
LOC: SDC 06:10
PROVIDERS: ATTEND Family Medicine
DX: K44.9 Diaphragmatic hernia without obstruction or gangrene (principal); I10 Essential (primary) hypertension; N40.0 Benign prostatic hyperplasia without lower urinary tract symptoms; Z79.899 Other long term (current) drug therapy
CPT/HCPCS: 99100; J2250; J2704

== ENCOUNTER 2023-06-22 10:06 | Emergency (ER) | payer MEDICARE, OTHER ==
[2023-06-22 11:01] VITALS: PULSE 74; RESP 18; TEMP 97.4; O2SAT 100
[2023-06-22] MEDS ORDERED: TYLENOL 325 MG ONE (11:16)
[2023-06-22] MEDS: TYLENOL 325 MG PO STA (11:17)
--- NOTE | 2023-06-22 12:02 | XRAY ---
Indication: Pain. Two-dimensional sonogram and color Doppler imaging IJVs vessels were later performed. Comparison: April 14, 2023 Popliteal vein again demonstrates nonoccluding thrombus grossly unchanged. Previous thrombus in posterior tibial vein has resolved. No thrombus in the remaining deep venous vessels right leg including greater saphenous vein. Patent veins demonstrate normal compressibility and normal venous waveforms. Impression: Again nonoccluding DVT popliteal vein.
--- NOTE | 2023-06-22 12:55 | ERPHSYRPT ---
- History of Present Illness Time Seen by Provider: 06/22/23 10:50 Source: patient Exam Limitations: no limitations Patient Subjective Stated Complaint: pt here for right leg pain for couple days, has hx of DVT in that leg after a hip surgery and is not longer taking a blood thinner Triage Nursing Assessment: pt alert, walked in, resp easy, skin w/d/p. no edema noted, has pedal pulse to right leg, right leg warm and pink,. 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 Moderate intensity, aggravated with palpation of the muscle and some with movements. No pain in the joint itself. No swelling or redness. Denies any fall or trauma. No numbness or tingling in the foot. Allergies/Adverse Reactions: No Known Drug Allergies Allergy (Verified 06/22/23 11:03) Home Medications: Colesevelam HCl [Welchol] 1,875 mg PO DAILY 02/19/20 [History] LORazepam [Lorazepam] 2 mg PO QHS 02/19/20 [History] Tamsulosin HCl 0.4 mg PO QHS 02/19/20 [History] Lisinopril 10 mg [Zestril 10 MG] 10 mg PO DAILY 08/07/20 [History] Hx Tetanus, Diphtheria Vaccination/Date Given: Yes Hx Influenza Vaccination/Date Given: Yes Hx Pneumococcal Vaccination/Date Given: Yes Immunizations Up to Date: Yes Travel Risk - International Travel Have you traveled outside of the country in past 3 weeks: No - Coronavirus Screening Are you exhibiting any of the following symptoms?: No Close contact with a COVID-19 positive Pt in past 14-21 Days: No - Vaccine Status Have you recieved a Covid-19 vaccination: Yes Social Media Sr Strategy Manager: Unknown - Vaccination Dates Date of 2cond Vaccination (if applicable): 2020 Dates if Unknown: ? - Review of Systems Constitutional: No Symptoms Ears, Nose, & Throat: No Symptoms Respiratory: No Symptoms Cardiac: No Symptoms Abdominal/Gastrointestinal: No Symptoms Genitourinary Symptoms: No Symptoms Musculoskeletal: Myalgias Skin: No Symptoms Neurological: No Symptoms Endocrine: No Symptoms Hematologic/Lymphatic: No Symptoms - Past Medical History Pertinent Past Medical History: Yes Neurological History: No Pertinent History ENT History: No Pertinent History Cardiac History: Hypertension Respiratory History: No Pertinent History Endocrine Medical History: No Pertinent History Musculoskeletal History: Osteoarthritis GI Medical History: Hepatitis History: Renal Disease Psycho-Social History: Anxiety, Depression Male Reproductive Disorders: No Pertinent History Other Medical History: R cubital tunnel release. Cholecystectomy. HTN med for previous panic attack. dvt 2023 - Past Surgical History Past Surgical History: Yes Neuro Surgical History: No Pertinent History Cardiac: No Pertinent History Respiratory: No Pertinent History Gastrointestinal: Cholecystectomy Genitourinary: No Pertinent History Musculoskeletal: Other Male Surgical History: No Pertinent History Other Surgical History: salivary gland, elbow, skin cancers removed. colonoscopy,hip 2022 - Social History Smoking Status: Former smoker Exposure to second hand smoke: No Drug Use: none Patient Lives Alone: No - Nursing Vital Signs Nursing Vital Signs: Initial Vital Signs Temperature 97.4 F 06/22/23 11:00 Pulse Rate 74 06/22/23 11:00 Respiratory Rate 18 06/22/23 11:00 Blood Pressure 156/91 06/22/23 11:00 O2 Sat by Pulse Oximetry 100 06/22/23 11:00 Pain Scale Pain Intensity 4 - Physical Exam General Appearance: no apparent distress, alert Eye Exam: PERRL/EOMI Neck Exam: normal inspection, full range of motion Respiratory Exam: normal breath sounds, lungs clear Cardiovascular Exam: regular rate/rhythm, normal heart sounds Gastrointestinal/Abdomen Exam: soft, normal bowel sounds, No tenderness Back Exam: normal inspection, normal range of motion Extremity Exam: normal inspection, normal range of motion, pelvis stable, tenderness (Right lower inner thigh above the knee and mid calf. Negative Homans' sign. Distal neurovascular intact) Neurologic Exam: alert, oriented x 3, cooperative Skin Exam: normal color SpO2 Interpretation: normal SpO2: 100 O2 Delivery: Room Air Ordered Tests: Medication Summary Discontinued Medications Generic Name Dose Route Start Last Admin Trade Name Freq PRN Reason Stop Dose Admin Acetaminophen 975 mg 06/22/23 11:12 06/22/23 11:17 Acetaminophen 325 Mg Tablet PO 06/22/23 11:13 975 mg STAT STA Administration Acetaminophen Confirm 06/22/23 11:16 Acetaminophen 325 Mg Tablet Administered 06/22/23 11:17 Dose 975 mg .ROUTE .STK-MED ONE - Progress Progress: improved Progress Note: 06/22/23 12:52 77-year-old is evaluated for right leg pain/cramping since morning with history of DVT recently. Patient has been taken off of Eliquis. Is given Tylenol for symptomatic relief and feeling much better on reevaluation. I do not appreciate any signs of cellulitis. No insect bite. No joint swelling and intact range of motion of knee joint/ankle joint. Obtained ultrasound which showed nonocc luding popliteal DVT which is unchanged from previous. Patient does not have any new DVT. I do not think patient needs to be restarted on Eliquis. I have tried to call Dr. Sher but could not reach him because he is off work today. He is advised to have outpatient follow-up in 1 to 2 days. Discussed signs symptoms of worsening needing return to ER which she seems understanding. 06/22/23 18:14 I have discussed with Dr. Sher and patient would reevaluate tomorrow morning in the office to see if he needs to be on Eliquis. Counseled pt/family regarding: diagnosis, need for follow-up, rad results Medical Desision Making - Diagnostic Testing Diagnostic test were ordered, analyzed, and reviewed by me: Yes Radiological Interpretation: Reviewed by me - Departure Departure Disposition: Home Clinical Impression: Leg pain Condition: Stable Critical Care Time: No Referrals: SONY SHER MD [Primary Care Provider] - Follow up/PCP as directed Instructions: Deep Vein Thrombosis (Blood Clots in the Legs) (DC), Muscle Spasms (DC) Additional Instructions: Take Tylenol as needed. Follow-up with your primary care for reevaluation in 1 to 2 days. Return to ER for worsening pain or if have swelling of the leg/thigh/redness/fever chills etc.
[2023-06-22 13:01] VITALS: BP 115/74
== END 2023-06-22 13:05 | disposition home or self-care (01) ==
LOC: ED 10:06
DX: M79.604 Pain in right leg (principal); I10 Essential (primary) hypertension; Z79.899 Other long term (current) drug therapy; Z86.718 Personal history of other venous thrombosis and embolism
CPT/HCPCS: 93971; 99283; A9270-GY

== ENCOUNTER 2023-06-29 17:13 | Observation (INO) | payer MEDICARE, OTHER ==
--- NOTE | 2023-06-29 17:25 | ERPHSYRPT ---
<SAVANAH CAMPBELL - Last Filed: 06/29/23 18:43> - History of Present Illness Time Seen by Provider: 06/29/23 17:25 Historian: patient Exam Limitations: no limitations Patient Subjective Stated Complaint: Chest pain Triage Nursing Assessment: Patient ambulated back to ED and transferred self to bed. Patient A+O x 3. Patient's skin pale, warm and dry. Patient states he woke up from a nap with chest pain 15 min prior to coming into ED. Patient complains of sharp, stabbing pain into right side of chest, right shoulder and right neck 01/09. Patient recently treated for DVT in right leg and took Eliquis for 1 month. Patient also complains of N/V and SOB. Physician History: This is a 77-year-old white male patient of Dr. Montelongo and ad taker Dr. Amaral who presents with sudden onset of sharp, stabbing right-sided chest pain that goes up into his right shoulder and right side of his neck. Patient is a former smoker of cigarettes. He has no history of myocardial infarction or coronary artery disease diagnosis. He has never seen a message clerk. Patient woke up from his nap approximately 15 minutes prior to arrival, with the above symptoms. Patient has shortness of breath as well. Patient has known right lower extremity DVT and was on Eliquis for approximately 1 month and then stopped the Eliquis medication. Patient was seen in our emergency department on 06/22/2023 and a repeat ultrasound showed an unchanged nonoccluding DVT in the popliteal region. It was recommended to the patient to restart the Eliquis and to follow- up with his primary care provider in the next day or 2 to have the discussion about restarting the Eliquis. Patient was unable to secure a primary care provider follow-up appointment until 06/30/2023. Patient has a history of hypertension, hyperlipidemia, anxiety, prostate issues, chronic renal disease, hepatitis, and osteoarthritis. Timing/Duration: today Quality: sharpness, stabbing Location: other (Right chest) Chest Pain Radiation: neck (Right neck), arm (Right shoulder) Severity of Pain-Max: moderate Severity of Pain-Current: moderate Modifying Factors: Improves With: nothing Associated Symptoms: nausea, shortness of breath Prior Chest Pain/Cardiac Workup: no prior chest pain, no prior cardiac workup Nitro Today/Relief: no nitro taken today Aspirin Treatment Today: 81 mg x 4, provided by ED Allergies/Adverse Reactions: No Known Drug Allergies Allergy (Verified 06/29/23 17:16) Home Medications: Colesevelam HCl [Welchol] 1,875 mg PO DAILY 02/19/20 [History] LORazepam [Lorazepam] 2 mg PO QHS 02/19/20 [History] Tamsulosin HCl 0.4 mg PO QHS 02/19/20 [History] Lisinopril 10 mg [Zestril 10 MG] 10 mg PO DAILY 08/07/20 [History] Hx Tetanus, Diphtheria Vaccination/Date Given: Yes Hx Influenza Vaccination/Date Given: Yes Hx Pneumococcal Vaccination/Date Given: Yes Immunizations Up to Date: Yes Travel Risk - International Travel Have you traveled outside of the country in past 3 weeks: No - Coronavirus Screening Are you exhibiting any of the following symptoms?: No Close contact with a COVID-19 positive Pt in past 14-21 Days: No - Vaccine Status Have you recieved a Covid-19 vaccination: Yes Customer Account Specialist: Unknown - Vaccination Dates Date of 2cond Vaccination (if applicable): 2020 Dates if Unknown: ? - Review of Systems Constitutional: No Symptoms Eyes: No Symptoms Ears, Nose, & Throat: No Symptoms Respiratory: Dyspnea Cardiac: Chest Pain Abdominal/Gastrointestinal: No Symptoms Genitourinary Symptoms: No Symptoms Musculoskeletal: No Symptoms Skin: No Symptoms Neurological: No Symptoms Psychological: No Symptoms Endocrine: No Symptoms Hematologic/Lymphatic: No Symptoms Immunological/Allergic: No Symptoms All Other Systems: Reviewed and Negative - Past Medical History Pertinent Past Medical History: Yes Neurological History: No Pertinent History ENT History: No Pertinent History Cardiac History: Hypertension Respiratory History: No Pertinent History Endocrine Medical History: No Pertinent History Musculoskeletal History: Osteoarthritis GI Medical History: Hepatitis History: Renal Disease Psycho-Social History: Anxiety, Depression Male Reproductive Disorders: No Pertinent History Other Medical History: R cubital tunnel release. Cholecystectomy. HTN med for previous panic attack. dvt 2023 - Past Surgical History Past Surgical History: Yes Neuro Surgical History: No Pertinent History Cardiac: No Pertinent History Respiratory: No Pertinent History Gastrointestinal: Cholecystectomy Genitourinary: No Pertinent History Musculoskeletal: Other Male Surgical History: No Pertinent History Other Surgical History: salivary gland, elbow, skin cancers removed. colonoscopy ,hip 2022 - Social History Smoking Status: Former smoker Exposure to second hand smoke: No Drug Use: none Patient Lives Alone: No - Physical Exam General Appearance: no apparent distress, alert, anxiety, thin Eye Exam: PERRL/EOMI, eyes nml inspection Ears, Nose, Throat Exam: normal ENT inspection, moist mucous membranes Neck Exam: normal inspection, non-tender, supple, full range of motion Respiratory Exam: normal breath sounds, chest tenderness (Right anterior chest), lungs clear, airway intact, No respiratory distress Cardiovascular Exam: regular rate/rhythm, normal heart sounds, normal peripheral pulses Gastrointestinal/Abdomen Exam: soft, normal bowel sounds, No tenderness Rectal Exam: not done Back Exam: normal inspection, normal range of motion, other, No CVA tenderness, No vertebral tenderness Extremity Exam: normal inspection, normal range of motion, pelvis stable Neurologic Exam: alert, oriented x 3, cooperative, voting machine repairer II-XII nml as tested, normal mood/affect, nml cerebellar function, nml station & gait, sensation nml Skin Exam: normal color, warm, dry Lymphatic Exam: No adenopathy SpO2 Interpretation: normal SpO2: 96 O2 Delivery: Room Air - Course Nursing assessment & vital signs reviewed: Yes EKG Interpreted by Me: RATE (92), Sinus Rhythm, NORMAL AXIS, NORMAL INTERVALS, NORMAL QRS, NORMAL ST-T, Other (No acute ischemic changes on today's twelve-lead EKG) - Progress Progress: improved, re-examined Air Movement: good Progress Note: 06/29/23 17:39 This patient's medical issue is 1 of low to high complexity. The level complexity in the workup performed is based on review of the patient's past medical history, review of the patient's medication list, review the patient drug allergy list, history present illness and physical findings on examination. The workup includes placement of intravenous line, infusion of 2 mg intravenous morphine, 4 mg of intravenous Zofran, twelve-lead EKG, troponin level, D-dimer level, BNP level. We will provide the patient with 80 mg subcutaneous Lovenox. We will likely perform a CT scan of the chest with contrast. 06/29/23 18:43 I am transferring care of this patient to Dr. Marino Grider at shift change. He will follow-up on the laboratory and radiographic study results and make final disposition. Blood Culture(s) Obtained: No Antibiotics given: No Counseled pt/family regarding: lab results, diagnosis, rad results Medical Desision Making - Diagnostic Testing Diagnostic test were ordered, analyzed, and reviewed by me: No - Risk of complications The pt has a mod risk of morbidity or mortality based on: Need for prescription drug management - Departure Departure Disposition: Home Clinical Impression: Chest pain, Pulmonary embolus, Fatty liver, Renal cyst, Chronic renal insufficiency Condition: Stable Critical Care Time: No Referrals: SONY MONTELONGO MD [Primary Care Provider] - Follow up/PCP as directed <MARINO GRIDER - Last Filed: 06/29/23 21:34> - Nursing Vital Signs Nursing Vital Signs: Initial Vital Signs Pulse Rate 93 H 06/29/23 17:16 Respiratory Rate 15 06/29/23 17:16 Blood Pressure 162/105 06/29/23 17:16 O2 Sat by Pulse Oximetry 96 06/29/23 17:16 Pain Scale Pain Intensity 4 - CT Exams Chest CT Interpretation: Tele-radiologist Report (No comps nonoccluding PE distal right main pulmonary artery extending into the right middle lobe and right lower lobe. Fatty liver and 2.8 cm right renal cyst) Ordered Tests: Active Orders 24 hr Category Date Time Status Cafe Or Restaurant Manager STAT Care 06/29/23 17:26 Active EKG-ER Only STAT Care 06/29/23 17:26 Active IV Insertion STAT Care 06/29/23 17:26 Active Pulse Oximetry (ED) STAT Care 06/29/23 17:26 Active CHEST WITH CONTRAST [CT] Stat Exams 06/29/23 18:57 Taken CBC W DIFF Stat Lab 06/29/23 17:40 Completed CMP Stat Lab 06/29/23 17:40 Completed D-DIMER QUANTITATIVE Stat Lab 06/29/23 17:40 Completed NT PRO BNPII Stat Lab 06/29/23 17:40 Completed PROTIME WITH INR Stat Lab 06/29/23 17:40 Completed TROPONIN Q4H Lab 06/29/23 17:40 Completed TROPONIN Q4H Lab 06/29/23 20:45 Received TROPONIN Q4H Lab 06/30/23 01:30 Ordered Transfer Order Routine Transfer 06/29/23 Ordered Medication Summary Discontinued Medications Generic Name Dose Route Start Last Admin Trade Name Freq PRN Reason Stop Dose Admin Aspirin 324 mg 06/29/23 17:26 06/29/23 17:31 Aspirin 81 Mg Tab.Chew PO 06/29/23 17:27 324 mg STAT ONE Administration Aspirin Confirm 06/29/23 17:31 Aspirin 81 Mg Tab.Chew Administered 06/29/23 17:32 Dose 324 mg .ROUTE .STK-MED ONE Enoxaparin Sodium 80 mg 06/29/23 17:33 06/29/23 17:35 Enoxaparin Sodium 80 Mg/0.8 Ml Syringe SQ 06/29/23 17:34 80 mg STAT ONE Administration Enoxaparin Sodium Confirm 06/29/23 17:34 Enoxaparin Sodium 80 Mg/0.8 Ml Syringe Administered 06/29/23 17:35 Dose 80 mg SQ .STK-MED ONE Sodium Chloride 500 mls @ 250 mls/hr 06/29/23 18:56 06/29/23 21:10 Sodium Chloride 0.9% 500 Ml IV 06/29/23 20:55 Infused .Q2H ONE Infusion Sodium Chloride Confirm 06/29/23 18:59 Sodium Chloride 0.9% 500 Ml Administered 06/29/23 19:00 Dose 500 mls @ ud IV .STK-MED ONE Morphine Sulfate 2 mg 06/29/23 17:41 06/29/23 17:46 Morphine Sulfate 2 Mg/Ml Inj IV 06/29/23 17:42 2 mg STAT ONE Administration Morphine Sulfate Confirm 06/29/23 17:45 Morphine Sulfate 2 Mg/Ml Inj Administered 06/29/23 17:46 Dose 2 mg .ROUTE .STK-MED ONE Ondansetron HCl 4 mg 06/29/23 17:41 06/29/23 17:46 Ondansetron Hcl 4 Mg/2 Ml Vial IV 06/29/23 17:42 4 mg STAT ONE Administration Ondansetron HCl Confirm 06/29/23 17:45 Ondansetron Hcl 4 Mg/2 Ml Vial Administered 06/29/23 17:46 Dose 4 mg .ROUTE .STK-MED ONE Lab/Rad Data: Laboratory Result Diagrams 06/29/23 17:40 06/29/23 17:40 Laboratory Results 06/29/23 06/29/23 06/29/23 Range/Units 17:40 17:40 17:40 WBC (4.0-10.5) x10^3/uL RBC (4.1-5.6) x10^6/uL Hgb (12.5-18.0) g/dL Hct (42-50) % MCV (78-100) fL MCH (26-32) pg MCHC (32-36) g/dL RDW (11.5-14.0) % Plt Count (150-450) x10^3/uL MPV (7.5-11.0) fL Gran % (36.0-66.0) % Immature Gran % (Auto) (0.00-0.4) % Nucleat RBC Rel Count (0.00-0.1) % Eos # (Auto) (0-0.5) x10^3/uL Immature Gran # (Auto) (0.00-0.03) x10^3u/L Absolute Lymphs (auto) (1.0-4.6) x10^3/uL Absolute Monos (auto) (0.0-1.3) x10^3/uL Absolute Nucleated RBC (0.00-0.01) x10^3u/L Lymphocytes % (24.0-44.0) % Monocytes % (0.0-12.0) % Eosinophils % (0.00-5.0) % Basophils % (0.0-0.4) % Absolute Granulocytes (1.4-6.9) x10^3/uL Basophils # (0-0.4) x10^3/uL PT 10.9 (9.4-12.5) SECONDS INR 1.00 (0.8-3.0) D-Dimer 3.71 H* (0.0-0.50) mg/L Sodium 136 L (137-145) mmol/L Potassium 4.2 (3.5-5.1) mmol/L Chloride 103 (98-107) mmol/L Carbon Dioxide 22 (22-30) mmol/L Anion Gap 15.2 H (5-15) MEQ/L BUN 22 H (9-20) mg/dL Creatinine 1.76 H (0.66-1.25) mg/dL Estimated GFR 39.3 ML/MIN Glucose 148 H (74-106) mg/dL Calcium 9.3 (8.4-10.2) mg/dL Total Bilirubin 1.10 (0.2-1.3) mg/dL AST 22 (17-59) U/L ALT 14 (0-50) U/L Alkaline Phosphatase 65 (38-126) U/L Troponin I < 0.012 (0.000-0.034) ng/mL NT-Pro-B Natriuret Pep 100 (<300) pg/mL Serum Total Protein 7.7 (6.3-8.2) g/dL Albumin 4.4 (3.5-5.0) g/dL 06/29/23 Range/Units 17:40 WBC 7.7 (4.0-10.5) x10^3/uL RBC 4.89 (4.1-5.6) x10^6/uL Hgb 15.0 (12.5-18.0) g/dL Hct 45.3 (42-50) % MCV 92.6 (78-100) fL MCH 30.7 (26-32) pg MCHC 33.1 (32-36) g/dL RDW 12.8 (11.5-14.0) % Plt Count 202 (150-450) x10^3/uL MPV 9.1 (7.5-11.0) fL Gran % 70.1 H (36.0-66.0) % Immature Gran % (Auto) 0.3 (0.00-0.4) % Nucleat RBC Rel Count 0.0 (0.00-0.1) % Eos # (Auto) 0.07 (0-0.5) x10^3/uL Immature Gran # (Auto) 0.02 (0.00-0.03) x10^3u/L Absolute Lymphs (auto) 1.54 (1.0-4.6) x10^3/uL Absolute Monos (auto) 0.60 (0.0-1.3) x10^3/uL Absolute Nucleated RBC 0.00 (0.00-0.01) x10^3u/L Lymphocytes % 20.1 L (24.0-44.0) % Monocytes % 7.8 (0.0-12.0) % Eosinophils % 0.9 (0.00-5.0) % Basophils % 0.8 (0.0-0.4) % Absolute Granulocytes 5.37 (1.4-6.9) x10^3/uL Basophils # 0.06 (0-0.4) x10^3/uL PT (9.4-12.5) SECONDS INR (0.8-3.0) D-Dimer (0.0-0.50) mg/L Sodium (137-145) mmol/L Potassium (3.5-5.1) mmol/L Chloride (98-107) mmol/L Carbon Dioxide (22-30) mmol/L Anion Gap (5-15) MEQ/L BUN (9-20) mg/dL Creatinine (0.66-1.25) mg/dL Estimated GFR ML/MIN Glucose (74-106) mg/dL Calcium (8.4-10.2) mg/dL Total Bilirubin (0.2-1.3) mg/dL AST (17-59) U/L ALT (0-50) U/L Alkaline Phosphatase (38-126) U/L Troponin I (0.000-0.034) ng/mL NT-Pro-B Natriuret Pep (<300) pg/mL Serum Total Protein (6.3-8.2) g/dL Albumin (3.5-5.0) g/dL - Progress Progress Note: Patient is a 77-year-old male evaluated by Dr. Jenkins. Patient endorsed to Dr. Grider at approximately [address] Jenkins ordered CTA chest to rule out PE. Dr. Grider advised follow-up on results and disposition accordingly. CTA chest reveals a pulmonary embolus. Patient has already received a dose of Lovenox prior to my shift. Case discussed with Dr. Salmeron at 9:[address] Salmeron accepts admission to observation. Plan of care discussed with patient. He agrees to admission to [facility] for further evaluation and treatment. Patient reassessed. He is resting comfortably. Vital stable. at bedside. They voiced no other complaints or concerns at this time. Portions of this note were created with voice recognition technology. There may be grammatical, spelling, punctuation or sound alike errors 06/29/23 21:32 - Departure Departure Disposition: Observation
[2023-06-29] MEDS ORDERED: BABY ASPIRIN 81 MG CHEW ONE (17:31)
[2023-06-29] MEDS: BABY ASPIRIN 81 MG CHEW PO ONE (17:31)
[2023-06-29] MEDS ORDERED: ENOXAPARIN SODIUM SQ ONE (17:34)
[2023-06-29] MEDS: ENOXAPARIN SODIUM SQ ONE (17:35)
[2023-06-29] MEDS ORDERED: MORPHINE SULFATE 2 MG INJ ONE (17:45)
[2023-06-29] MEDS ORDERED: Zofran 4 MG/2 ML VIAL ONE (17:45)
[2023-06-29 17:46] LABS: Absolute Neutrophil Ct (ANC) 5.37 x10^3/uL (1.4-6.9); BASOPHIL % 0.8 % (0.0-0.4); Basophil (Absolute #) 0.06 x10^3/uL (0-0.4); Eosinophil % 0.9 % (0.00-5.0); Eosinophil (Absolute #) 0.07 x10^3/uL (0-0.5); Hematocrit 45.3 % (42-50); IMMATURE GRAN # 0.02 x10^3u/L (0.00-0.03); IMMATURE GRAN % 0.3 % (0.00-0.4); Lymphocyte (Absolute #) 1.54 x10^3/uL (1.0-4.6); Lymphocytes % 20.1 % (24.0-44.0); Mean Cell Volume 92.6 fL (78-100); Mean Corpuscular Hemoglobin 30.7 pg (26-32); Mean Corpuscular Hgb Concent. 33.1 g/dL (32-36); Mean Platelet Volume 9.1 fL (7.5-11.0); Monocytes % 7.8 % (0.0-12.0); Neutrophil % 70.1 % (36.0-66.0); Platelet Count 202 x10^3/uL (150-450); Red Blood Count 4.89 x10^6/uL (4.1-5.6); Red Cell Distribution Width 12.8 % (11.5-14.0); White Blood Count 7.7 x10^3/uL (4.0-10.5)
[2023-06-29] MEDS: Zofran 4 MG/2 ML VIAL IV ONE (17:46)
[2023-06-29] MEDS: MORPHINE SULFATE 2 MG INJ IV ONE (17:46)
[2023-06-29 18:08] LABS: PROTIME 10.9 SECONDS (9.4-12.5)
[2023-06-29 18:09] LABS: ALBUMIN 4.4 g/dL (3.5-5.0); ANION GAP 15.2 MEQ/L (5-15); BILIRUBIN,TOTAL 1.1 mg/dL (0.2-1.3); Calcium 9.3 mg/dL (8.4-10.2); Creatinine 1 1.76 mg/dL (0.66-1.25); EST GLOMERULAR FILTRATION RATE 39.3 ML/MIN; Potassium 4.2 mmol/L (3.5-5.1); Total Protein 7.7 g/dL (6.3-8.2)
[2023-06-29] MEDS ORDERED: Sodium Chloride 0.9% 500 ML 500 ML IV ONE (18:59)
[2023-06-29] MEDS: Sodium Chloride 0.9% 500 ML 500 ML IV ONE (19:01)
[2023-06-29 19:08] LABS: D-DIMER QUANTITATIVE 3.71 mg/L (0.0-0.50)
--- NOTE | 2023-06-29 22:28 | PCM.HP ---
History of Present Illness - Chief Complaint Chief Complaint: sob Date: 06/29/23 History of Present Illness: Mr. Kolb is a 77 year old male with a past medical history significant for hypertension, hyperlipidemia, BPH and CKD who presents to the hospital with complaints of increasing shortness of breath associated with some chest pain/pressure. He had been seen recently for DVT but apparently was not started on assistant terminal manager anticoagulation. He was evaluated in the ER with an elevated d- dimer and then underwent CTA chest that demonstrated pulmonary embolism. He has been somewhat hypoxic on exertion with O2 sats into the low 90s with elevated respiratory rate. He was given a dose of Lovenox and has been recommended for admission. - Review of Systems Eyes: No Vision Changes Ears, Nose, & Throat: No Ear Pain, No Ear Discharge Respiratory: Orthopnea, Short Of Breath, No Stridor, No Wheezing Cardiac: Chest Pain, No Edema, No Palpitations Abdominal/Gastrointestinal: No Nausea, No Vomiting, No Diarrhea Genitourinary Symptoms: No Dysuria, No Frequency, No Hematuria Musculoskeletal: No Back Pain, No Neck Pain Skin: No Rash Neurological: No Headache, No Parasthesia Psychological: No Suicidal Ideations Endocrine: No Polyuria, No Polydipsia Medications & Allergies Home Medications: Home Medication List Colesevelam HCl [Welchol] 1,875 mg PO DAILY 02/19/20 [History Confirmed 06/29/23] LORazepam [Lorazepam] 2 mg PO QHS 02/19/20 [History Confirmed 06/29/23] Tamsulosin HCl 0.4 mg PO QHS 02/19/20 [History Confirmed 06/29/23] Lisinopril 10 mg [Zestril 10 MG] 10 mg PO DAILY 08/07/20 [History Confirmed 06/29/23] Escitalopram Oxalate [Lexapro] 10 mg PO HS 06/29/23 [History Confirmed 06/29/23] Allergies/Adverse Reactions: Allergies Allergy/AdvReac Type Severity Reaction Status Date / Time No Known Drug Allergies Allergy Verified 06/29/23 17:16 - Past Medical History Past Medical History: Yes Neurological History: No Pertinent History ENT History: No Pertinent History Cardiac History: Hypertension Respiratory History: No Pertinent History Endocrine Medical History: No Pertinent History Musculoskelatal History: Osteoarthritis GI Medical History: Hepatitis History: Renal Disease Pyscho-Social History: Anxiety, Depression Male Reproductive Disorders: No Pertinent History Comment: R cubital tunnel release. Cholecystectomy. HTN med for previous panic attack. dvt 2023 - Past Surgical History Past Surgical History: Yes Neuro Surgical History: No Pertinent History Cardiac History: No Pertinent History Respiratory Surgery: No Pertinent History GI Surgical History: Cholecystectomy Genitourinary Surgical Hx: No Pertinent History Musculskeletal Surgical Hx: Other Male Surgical History: No Pertinent History Other Surgical History: salivary gland, elbow, skin cancers removed. colonoscopy,hip 2022 - Social History Smoking Status: Former smoker Exposure to second hand smoke: No Alcohol: None Drug Use: none - Physical Exam Vital Signs: Vital Signs - 24 hr Pulse Resp BP BP Pulse Ox 06/29/23 22:00 76 24 155/97 97 06/29/23 21:30 79 18 155/97 06/29/23 21:00 77 20 140/99 97 06/29/23 20:30 80 22 120/75 97 06/29/23 20:00 81 24 116/73 97 06/29/23 19:59 79 22 97 06/29/23 19:54 85 26 H 91 L 06/29/23 19:00 79 21 125/76 97 06/29/23 18:44 96 06/29/23 18:30 79 20 128/87 97 06/29/23 18:00 84 26 H 141/95 96 06/29/23 17:50 88 20 144/109 95 06/29/23 17:49 94 H 18 97 06/29/23 17:40 95 H 24 98 06/29/23 17:32 98 H 23 06/29/23 17:29 96 06/29/23 17:16 94 H 16 162/105 162/105 96 General Appearance: no apparent distress, alert Neurologic Exam: cooperative, normal mood/affect Ears, Nose, Throat Exam: dry mucous membranes Neck Exam: supple Respiratory Exam: No respiratory distress, No accessory muscle use, No wheezing Cardiovascular Exam: regular rate/rhythm Gastrointestinal/Abdomen Exam: soft Extremity Exam: No pedal edema Skin Exam: normal color, No rash Results - Labs Lab/Micro Results: Lab Results-Last 24 Hours 06/29/23 06/29/23 06/29/23 Range/Units 17:40 17:40 17:40 WBC 7.7 (4.0-10.5) x10^3/uL RBC 4.89 (4.1-5.6) x10^6/uL Hgb 15.0 (12.5-18.0) g/dL Hct 45.3 (42-50) % MCV 92.6 (78-100) fL MCH 30.7 (26-32) pg MCHC 33.1 (32-36) g/dL RDW 12.8 (11.5-14.0) % Plt Count 202 (150-450) x10^3/uL MPV 9.1 (7.5-11.0) fL Gran % 70.1 H (36.0-66.0) % Immature Gran % (Auto) 0.3 (0.00-0.4) % Nucleat RBC Rel Count 0.0 (0.00-0.1) % Eos # (Auto) 0.07 (0-0.5) x10^3/uL Immature Gran # (Auto) 0.02 (0.00-0.03) x10^3u/L Absolute Lymphs (auto) 1.54 (1.0-4.6) x10^3/uL Absolute Monos (auto) 0.60 (0.0-1.3) x10^3/uL Absolute Nucleated RBC 0.00 (0.00-0.01) x10^3u/L Lymphocytes % 20.1 L (24.0-44.0) % Monocytes % 7.8 (0.0-12.0) % Eosinophils % 0.9 (0.00-5.0) % Basophils % 0.8 (0.0-0.4) % Absolute Granulocytes 5.37 (1.4-6.9) x10^3/uL Basophils # 0.06 (0-0.4) x10^3/uL PT 10.9 (9.4-12.5) SECONDS INR 1.00 (0.8-3.0) D-Dimer 3.71 H* (0.0-0.50) mg/L Sodium 136 L (137-145) mmol/L Potassium 4.2 (3.5-5.1) mmol/L Chloride 103 (98-107) mmol/L Carbon Dioxide 22 (22-30) mmol/L Anion Gap 15.2 H (5-15) MEQ/L BUN 22 H (9-20) mg/dL Creatinine 1.76 H (0.66-1.25) mg/dL Estimated GFR 39.3 ML/MIN Glucose 148 H (74-106) mg/dL Calcium 9.3 (8.4-10.2) mg/dL Total Bilirubin 1.10 (0.2-1.3) mg/dL AST 22 (17-59) U/L ALT 14 (0-50) U/L Alkaline Phosphatase 65 (38-126) U/L Troponin I (0.000-0.034) ng/mL NT-Pro-B Natriuret Pep 100 (<300) pg/mL Serum Total Protein 7.7 (6.3-8.2) g/dL Albumin 4.4 (3.5-5.0) g/dL 06/29/23 06/29/23 Range/Units 17:40 20:45 WBC (4.0-10.5) x10^3/uL RBC (4.1-5.6) x10^6/uL Hgb (12.5-18.0) g/dL Hct (42-50) % MCV (78-100) fL MCH (26-32) pg MCHC (32-36) g/dL RDW (11.5-14.0) % Plt Count (150-450) x10^3/uL MPV (7.5-11.0) fL Gran % (36.0-66.0) % Immature Gran % (Auto) (0.00-0.4) % Nucleat RBC Rel Count (0.00-0.1) % Eos # (Auto) (0-0.5) x10^3/uL Immature Gran # (Auto) (0.00-0.03) x10^3u/L Absolute Lymphs (auto) (1.0-4.6) x10^3/uL Absolute Monos (auto) (0.0-1.3) x10^3/uL Absolute Nucleated RBC (0.00-0.01) x10^3u/L Lymphocytes % (24.0-44.0) % Monocytes % (0.0-12.0) % Eosinophils % (0.00-5.0) % Basophils % (0.0-0.4) % Absolute Granulocytes (1.4-6.9) x10^3/uL Basophils # (0-0.4) x10^3/uL PT (9.4-12.5) SECONDS INR (0.8-3.0) D-Dimer (0.0-0.50) mg/L Sodium (137-145) mmol/L Potassium (3.5-5.1) mmol/L Chloride (98-107) mmol/L Carbon Dioxide (22-30) mmol/L Anion Gap (5-15) MEQ/L BUN (9-20) mg/dL Creatinine (0.66-1.25) mg/dL Estimated GFR ML/MIN Glucose (74-106) mg/dL Calcium (8.4-10.2) mg/dL Total Bilirubin (0.2-1.3) mg/dL AST (17-59) U/L ALT (0-50) U/L Alkaline Phosphatase (38-126) U/L Troponin I < 0.012 < 0.012 (0.000-0.034) ng/mL NT-Pro-B Natriuret Pep (<300) pg/mL Serum Total Protein (6.3-8.2) g/dL Albumin (3.5-5.0) g/dL - Radiology Impressions Radiology Exams & Impressions: Radiology Procedures Category Date Time Status CHEST WITH CONTRAST [CT] Stat Exams 06/29/23 18:57 Taken Assessment/Plan (1) Pulmonary embolus Current Visit: Yes Status: Acute Qualifiers: Chronicity: acute Assessment & Plan: Known DVT likely progression toward PE with shortness of breath/hypoxemia/tachypnea 1. Admit to hospital 2. Start systemic anticoagulation 3. 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 Encourage PO intake 2. IVFs to flush out contrast from CTA 3. Follow I/Os 4. Watch electrolytes, creatinine closely Code(s): N18.32 - CHRONIC KIDNEY DISEASE, STAGE 3B (3) Hypertensive chronic kidney disease with stage 1 through stage 4 chronic kidney disease, or unspecified chronic kidney disease Current Visit: Yes Status: Acute Assessment & Plan: Blood pressure under good control 1. Continue TIFFANY 2. Low Na diet 3. Monitor blood pressure readings Code(s): I12.9 - HYPERTENSIVE CHRONIC KIDNEY DISEASE W STG 1-4/UNSP CHR EDWARDO Telemedicine Encounter - Telemedicine Encounter Telemedicine Encounter: The entirety of this encounter was performed via Telemedicine"
[2023-06-29] MEDS ORDERED: TYLENOL 325 MG PO PRN (22:41)
[2023-06-29] MEDS ORDERED: Docusate Sodium 100 MG PO PRN (22:41)
[2023-06-29] MEDS ORDERED: Ativan 1 MG ONE (23:35)
[2023-06-29] MEDS: ENOXAPARIN SODIUM SQ SCH (23:37)
[2023-06-29] MEDS: Ativan 1 MG PO SCH (23:37)
[2023-06-29] MEDS: Sodium Chloride 0.9% 1000 ML 1,000 ML IV SCH (23:38)
[2023-06-30 02:18] LABS: Absolute Neutrophil Ct (ANC) 4.29 x10^3/uL (1.4-6.9); BASOPHIL % 0.6 % (0.0-0.4); Basophil (Absolute #) 0.04 x10^3/uL (0-0.4); Eosinophil % 1.7 % (0.00-5.0); Eosinophil (Absolute #) 0.11 x10^3/uL (0-0.5); Hematocrit 38.6 % (42-50); Hemoglobin 12.7 g/dL (12.5-18.0); IMMATURE GRAN # 0.01 x10^3u/L (0.00-0.03); IMMATURE GRAN % 0.2 % (0.00-0.4); Lymphocytes % 20.3 % (24.0-44.0); Mean Cell Volume 91.7 fL (78-100); Mean Corpuscular Hemoglobin 30.2 pg (26-32); Mean Corpuscular Hgb Concent. 32.9 g/dL (32-36); Mean Platelet Volume 8.9 fL (7.5-11.0); Monocyte (Absolute #) 0.65 x10^3/uL (0.0-1.3); Monocytes % 10.2 % (0.0-12.0); Platelet Count 166 x10^3/uL (150-450); Red Blood Count 4.21 x10^6/uL (4.1-5.6); White Blood Count 6.4 x10^3/uL (4.0-10.5)
[2023-06-30 02:33] LABS: ALBUMIN 3.2 g/dL (3.5-5.0); ANION GAP 10.2 MEQ/L (5-15); BILIRUBIN,TOTAL 0.6 mg/dL (0.2-1.3); Calcium 8.7 mg/dL (8.4-10.2); Creatinine 1 1.76 mg/dL (0.66-1.25); EST GLOMERULAR FILTRATION RATE 39.3 ML/MIN; Potassium 4.3 mmol/L (3.5-5.1); Total Protein 5.9 g/dL (6.3-8.2)
--- NOTE | 2023-06-30 08:26 | PCM.DS ---
Discharge Summary Date of Admission: 06/29/23 22:18 Date of Discharge: 06/30/23 Admitting Physician: MARLA GARCIA MD Primary Care Provider: SONY SHER Allergies Allergies No Known Drug Allergies Allergy (Verified 06/29/23 17:16) Hospital Summary - Hospital Course Hospital Course: Mr. Kolb is a 77 year old male with a past medical history significant for hypertension, hyperlipidemia, BPH and CKD who presents to the hospital with complaints of increasing shortness of breath associated with some chest pain/pressure. He had been seen recently for DVT but apparently was not started on [facility] anticoagulation. He was evaluated in the ER with an elevated d- dimer and then underwent CTA chest that demonstrated pulmonary embolism. He has been somewhat hypoxic on exertion with O2 sats into the low 90s with elevated respiratory rate. He was given a dose of Lovenox and has been recommended for admission. THis morning he hs continued SOb but O2 is 97% on RA. He has chest pain with inspiration. He asked for morphine to be stopped. Will change to dilaudid. CT + for PE, Non- occluding PE distal Right main Pulmonary artery extending into RML and RLL. Loveonx stopped and changed to Heaprin IV gtt and moved to ICU. Echo and BLLE VD ordered. Will transfer to higher level of care for further evaluation. Echo most likely not to be read for 2-3 days so unknown if pt has any heart strain. Pt ok with transfer to higher level of care. Currently vitals are stable. - Vitals & Intake/Output Vital Signs: Vital Signs Temperature 97.5 F 06/30/23 07:32 Pulse Rate 80 06/30/23 07:32 Respiratory Rate 18 06/30/23 07:32 Blood Pressure 135/84 06/30/23 07:32 O2 Sat by Pulse Oximetry 99 06/30/23 07:32 Intake & Output: Intake & Output 06/27/23 06/28/23 06/29/23 06/30/23 11:59 11:59 11:59 11:59 Weight 75 kg - Lab Result Diagrams: 06/30/23 01:40 06/30/23 01:40 Lab Results-Last 24 Hrs: Lab Results-Last 24 Hours 06/29/23 06/29/23 06/29/23 Range/Units 17:40 17:40 17:40 WBC 7.7 (4.0-10.5) x10^3/uL RBC 4.89 (4.1-5.6) x10^6/uL Hgb 15.0 (12.5-18.0) g/dL Hct 45.3 (42-50) % MCV 92.6 (78-100) fL MCH 30.7 (26-32) pg MCHC 33.1 (32-36) g/dL RDW 12.8 (11.5-14.0) % Plt Count 202 (150-450) x10^3/uL MPV 9.1 (7.5-11.0) fL Gran % 70.1 H (36.0-66.0) % Immature Gran % (Auto) 0.3 (0.00-0.4) % Nucleat RBC Rel Count 0.0 (0.00-0.1) % Eos # (Auto) 0.07 (0-0.5) x10^3/uL Immature Gran # (Auto) 0.02 (0.00-0.03) x10^3u/L Absolute Lymphs (auto) 1.54 (1.0-4.6) x10^3/uL Absolute Monos (auto) 0.60 (0.0-1.3) x10^3/uL Absolute Nucleated RBC 0.00 (0.00-0.01) x10^3u/L Lymphocytes % 20.1 L (24.0-44.0) % Monocytes % 7.8 (0.0-12.0) % Eosinophils % 0.9 (0.00-5.0) % Basophils % 0.8 (0.0-0.4) % Absolute Granulocytes 5.37 (1.4-6.9) x10^3/uL Basophils # 0.06 (0-0.4) x10^3/uL PT 10.9 (9.4-12.5) SECONDS INR 1.00 (0.8-3.0) D-Dimer 3.71 H* (0.0-0.50) mg/L Sodium 136 L (137-145) mmol/L Potassium 4.2 (3.5-5.1) mmol/L Chloride 103 (98-107) mmol/L Carbon Dioxide 22 (22-30) mmol/L Anion Gap 15.2 H (5-15) MEQ/L BUN 22 H (9-20) mg/dL Creatinine 1.76 H (0.66-1.25) mg/dL Estimated GFR 39.3 ML/MIN Glucose 148 H (74-106) mg/dL Calcium 9.3 (8.4-10.2) mg/dL Total Bilirubin 1.10 (0.2-1.3) mg/dL AST 22 (17-59) U/L ALT 14 (0-50) U/L Alkaline Phosphatase 65 (38-126) U/L Troponin I (0.000-0.034) ng/mL NT-Pro-B Natriuret Pep 100 (<300) pg/mL Serum Total Protein 7.7 (6.3-8.2) g/dL Albumin 4.4 (3.5-5.0) g/dL 06/29/23 06/29/23 06/30/23 Range/Units 17:40 20:45 01:40 WBC (4.0-10.5) x10^3/uL RBC (4.1-5.6) x10^6/uL Hgb (12.5-18.0) g/dL Hct (42-50) % MCV (78-100) fL MCH (26-32) pg MCHC (32-36) g/dL RDW (11.5-14.0) % Plt Count (150-450) x10^3/uL MPV (7.5-11.0) fL Gran % (36.0-66.0) % Immature Gran % (Auto) (0.00-0.4) % Nucleat RBC Rel Count (0.00-0.1) % Eos # (Auto) (0-0.5) x10^3/uL Immature Gran # (Auto) (0.00-0.03) x10^3u/L Absolute Lymphs (auto) (1.0-4.6) x10^3/uL Absolute Monos (auto) (0.0-1.3) x10^3/uL Absolute Nucleated RBC (0.00-0.01) x10^3u/L Lymphocytes % (24.0-44.0) % Monocytes % (0.0-12.0) % Eosinophils % (0.00-5.0) % Basophils % (0.0-0.4) % Absolute Granulocytes (1.4-6.9) x10^3/uL Basophils # (0-0.4) x10^3/uL PT (9.4-12.5) SECONDS INR (0.8-3.0) D-Dimer (0.0-0.50) mg/L Sodium (137-145) mmol/L Potassium (3.5-5.1) mmol/L Chloride (98-107) mmol/L Carbon Dioxide (22-30) mmol/L Anion Gap (5-15) MEQ/L BUN (9-20) mg/dL Creatinine (0.66-1.25) mg/dL Estimated GFR ML/MIN Glucose (74-106) mg/dL Calcium (8.4-10.2) mg/dL Total Bilirubin (0.2-1.3) mg/dL AST (17-59) U/L ALT (0-50) U/L Alkaline Phosphatase (38-126) U/L Troponin I < 0.012 < 0.012 < 0.012 (0.000-0.034) ng/mL NT-Pro-B Natriuret Pep (<300) pg/mL Serum Total Protein (6.3-8.2) g/dL Albumin (3.5-5.0) g/dL 06/30/23 06/30/23 Range/Units 01:40 01:40 WBC 6.4 (4.0-10.5) x10^3/uL RBC 4.21 (4.1-5.6) x10^6/uL Hgb 12.7 (12.5-18.0) g/dL Hct 38.6 L (42-50) % MCV 91.7 (78-100) fL MCH 30.2 (26-32) pg MCHC 32.9 (32-36) g/dL RDW 13.0 (11.5-14.0) % Plt Count 166 (150-450) x10^3/uL MPV 8.9 (7.5-11.0) fL Gran % 67.0 H (36.0-66.0) % Immature Gran % (Auto) 0.2 (0.00-0.4) % Nucleat RBC Rel Count 0.0 (0.00-0.1) % Eos # (Auto) 0.11 (0-0.5) x10^3/uL Immature Gran # (Auto) 0.01 (0.00-0.03) x10^3u/L Absolute Lymphs (auto) 1.30 (1.0-4.6) x10^3/uL Absolute Monos (auto) 0.65 (0.0-1.3) x10^3/uL Absolute Nucleated RBC 0.00 (0.00-0.01) x10^3u/L Lymphocytes % 20.3 L (24.0-44.0) % Monocytes % 10.2 (0.0-12.0) % Eosinophils % 1.7 (0.00-5.0) % Basophils % 0.6 (0.0-0.4) % Absolute Granulocytes 4.29 (1.4-6.9) x10^3/uL Basophils # 0.04 (0-0.4) x10^3/uL PT (9.4-12.5) SECONDS INR (0.8-3.0) D-Dimer (0.0-0.50) mg/L Sodium 137 (137-145) mmol/L Potassium 4.3 (3.5-5.1) mmol/L Chloride 104 (98-107) mmol/L Carbon Dioxide 26 (22-30) mmol/L Anion Gap 10.2 (5-15) MEQ/L BUN 22 H (9-20) mg/dL Creatinine 1.76 H (0.66-1.25) mg/dL Estimated GFR 39.3 ML/MIN Glucose 141 H (74-106) mg/dL Calcium 8.7 (8.4-10.2) mg/dL Total Bilirubin 0.60 (0.2-1.3) mg/dL AST 23 (17-59) U/L ALT 12 (0-50) U/L Alkaline Phosphatase 65 (38-126) U/L Troponin I (0.000-0.034) ng/mL NT-Pro-B Natriuret Pep (<300) pg/mL Serum Total Protein 5.9 L (6.3-8.2) g/dL Albumin 3.2 L (3.5-5.0) g/dL - Radiology Exams Ordered Rad Exams-Entire Visit: Radiology Procedures Category Date Time Status CHEST WITH CONTRAST [CT] Stat Exams 06/29/23 18:57 Taken - Procedures and Test Procedures and Tests throughout Hospitalization: Therapy Orders & Screens 06/29/23 22:41 Respiratory Therapy Consult ONCE Comment: Reason For Exam: Diagnosis: sob Discharge Exam General Appearance: no apparent distress, alert Neurologic Exam: alert, oriented x 3, cooperative, normal mood/affect, nml c erebellar function, sensation nml, No motor deficits Eye Exam: PERRL, EOMI, eyes nml inspection Ears, Nose, Throat Exam: normal ENT inspection, pharynx normal, moist mucous membranes Neck Exam: normal inspection, non-tender, supple, full range of motion Respiratory Exam: normal breath sounds, chest tenderness, lungs clear, No respiratory distress Cardiovascular Exam: regular rate/rhythm, normal heart sounds Gastrointestinal/Abdomen Exam: soft, No tenderness, No mass Male Genitalia Exam: deferred Rectal Exam: deferred Back Exam: normal inspection, normal range of motion, No CVA tenderness, No vertebral tenderness Extremity Exam: normal inspection, normal range of motion Skin Exam: normal color, warm, dry Final Diagnosis/Problem List - Final Discharge Diagnosis/Problem (1) Pulmonary embolus Current Visit: No Status: Acute Assessment & Plan: - CTA 06/29/28 Non- occluding PE distal Right main Pulmonary artery extending into RML and RLL. Fatty liver and 2.8 CM right renal cyst. - Tele - bedrest - Lovenox 70 BID- d/c'd - start heparin gtt - venous duplex BLLE - Echo - Dilaudid for pain as pt did not like morphine - RA 99% - IS - transfer to higher level of care Code(s): I26.99 - OTHER PULMONARY EMBOLISM WITHOUT ACUTE COR PULMONALE (2) Acute on chronic renal failure Current Visit: Yes Status: Acute Assessment & Plan: - Creat 1.76, baseline 1.57 - NS @ 50 - Will need OP nephrology f/u Code(s): N17.9 - ACUTE KIDNEY FAILURE, UNSPECIFIED; N18.9 - CHRONIC KIDNEY DISEASE, UNSPECIFIED (3) Hx of deep venous thrombosis Current Visit: Yes Status: Acute Assessment & Plan: - Pt has a hx of repeated blood clots - was on Eliquis and this was stopped. - Will need f/u with hematology for OP evaluation - + homans sign R leg - venous duplex 06/22/23 - per old records None occluding DVT popliteal vein - Repeat VD BLLE - Echo Code(s): Z86.718 - PERSONAL HISTORY OF OTHER VENOUS THROMBOSIS AND EMBOLISM (4) Dyspnea Current Visit: Yes Status: Acute Assessment & Plan: - 2:2 PE - Dilaudid for pain - RA- 97% Code(s): R06.00 - DYSPNEA, UNSPECIFIED (5) BPH (benign prostatic hyperplasia) Current Visit: Yes Status: Chronic Assessment & Plan: - Continue tamsulosin Code(s): N40.0 - BENIGN PROSTATIC HYPERPLASIA WITHOUT LOWER URINRY TRACT SYMP (6) Hyperlipidemia Current Visit: Yes Status: Chronic Assessment & Plan: - Continue Welchol Code(s): E78.5 - HYPERLIPIDEMIA, UNSPECIFIED (7) Anxiety Current Visit: Yes Status: Chronic Assessment & Plan: - Continue lorazapem Code(s): F41.9 - ANXIETY DISORDER, UNSPECIFIED (8) Depression Current Visit: Yes Status: Chronic Assessment & Plan: - Continue lexapro Code(s): F32.A - DEPRESSION, UNSPECIFIED (9) HTN (hypertension) Current Visit: Yes Status: Chronic Assessment & Plan: - Continue lisinopril - BP stable- monitor Code(s): I10 - ESSENTIAL (PRIMARY) HYPERTENSION - Discharge Discharge Date: 06/30/23 Disposition: Home, Self-Care Condition: Stable Prescriptions: Continue Tamsulosin HCl 0.4 mg PO HS LORazepam [Lorazepam] 2 mg PO QHS Colesevelam HCl [Welchol] 1,875 mg PO DAILY Lisinopril 10 mg [Zestril 10 MG] 10 mg PO HS Escitalopram Oxalate [Lexapro] 10 mg PO HS Follow up with: SONY SHRE MD [Primary Care Provider] -
--- NOTE | 2023-06-30 08:48 | XRAY ---
Indication: Chest pain. Elevated d-dimer. History DVT. Multiple contiguous axial images obtained through the chest using 100 cc Isovue 370 contrast and PE protocol. Comparison: None Good opacification of the pulmonary arteries to include the lobar and segmental branches. Nonoccluding pulmonary emboli seen in the distal right main pulmonary artery extending into right middle and right lower lobe branches. Heart not enlarged. Aorta is normal in course and caliber. No pathologic mediastinal/hilar lymphadenopathy. Lungs demonstrate mild bibasilar dependent atelectasis. No suspicious pulmonary mass/nodule, infiltrate, effusion, or pneumothorax. Bony thorax intact with osteopenia and minimal degenerative changes throughout the spine. Limited upper abdomen demonstrates fatty liver, cholecystomy clips, and 2.8 cm right renal cyst. Impression: 1. Nonoccluding right lung pulmonary emboli as detailed. 2. Incidental bibasilar dependent atelectasis, chronic bony findings, fatty liver, and right renal cyst.
[2023-06-30] MEDS: ceLEXa 20 MG PO SCH (08:56)
[2023-06-30] MEDS: Zestril 10 MG PO SCH (08:59)
[2023-06-30] MEDS: Flomax 0.4 MG PO SCH (08:59)
[2023-06-30] MEDS: ENOXAPARIN SODIUM SQ SCH (08:59)
[2023-06-30] MEDS: Protonix 40MG Tablet PO SCH (08:59)
[2023-06-30] MEDS: Hydromorphone 1 mg/ml Injection IV PRN (09:10)
[2023-06-30] MEDS ORDERED: MEDICATION INTERVENTION MC SCH (09:15)
[2023-06-30] MEDS ORDERED: COLESEVELAM HCL PO SCH (10:00)
[2023-06-30] MEDS ORDERED: HEPARIN 5000 UNITS/0.5 ML (HIGH RISK MED) IV PRN (10:25)
[2023-06-30] MEDS: Heparin 25,000 units/D5W: USE ORDER SET PROTO 25,000 UNITS/250 ML BAG IV SCH (11:42)
[2023-06-30 11:44] LABS: Hematocrit 44.3 % (42-50); Hemoglobin 14.4 g/dL (12.5-18.0); Mean Cell Volume 92.5 fL (78-100); Mean Corpuscular Hemoglobin 30.1 pg (26-32); Mean Corpuscular Hgb Concent. 32.5 g/dL (32-36); Mean Platelet Volume 9.2 fL (7.5-11.0); Platelet Count 203 x10^3/uL (150-450); Red Blood Count 4.79 x10^6/uL (4.1-5.6); White Blood Count 6.3 x10^3/uL (4.0-10.5)
[2023-06-30 12:09] LABS: INR 1.05 (0.8-3.0); PROTIME 11.4 SECONDS (9.4-12.5); PTT 35.9 SECONDS (25.1-36.5)
--- NOTE | 2023-06-30 12:31 | XRAY ---
Indication: Right leg DVT. Pulmonary embolus. Two-dimensional sonogram and color Doppler imaging major venous vessels left and right leg performed. Comparison: Right leg April 14, 2023 and left leg June 22, 2023. Right leg again demonstrates nonoccluding thrombi in the popliteal and posterior tibial veins. New nonoccluding thrombi in the distal femoral vein. Left leg now negative for DVT. Impression: Worsening nonoccluding right leg DVT. Left leg negative for DVT.
[2023-06-30] MEDS: PATIENT OWN MEDICATION PO SCH (12:43)
[2023-06-30 13:13] VITALS: PULSE 85
[2023-06-30 15:08] VITALS: BP 145/95; RESP 24; TEMP 97.6; O2SAT 95
[2023-06-30] MEDS ORDERED: Lexapro PO SCH (22:00)
[2023-06-30] MEDS ORDERED: LORAZEPAM 2 MG PO SCH (22:00)
[2023-06-30] MEDS ORDERED: Zestril 10 MG PO SCH (22:00)
[2023-06-30] MEDS ORDERED: Flomax 0.4 MG PO SCH (22:00)
[2023-06-30] MEDS ORDERED: Ativan 1 MG PO SCH (22:00)
== END 2023-06-30 15:20 | disposition short-term general hospital (02) ==
LOC: ED 17:13 → MED SURG 22:18 → ICU 06-30 10:25
PROVIDERS: ADMIT Internal Medicine Nephrology; ATTEND Internal Medicine Nephrology
DX: I26.99 Other pulmonary embolism without acute cor pulmonale (principal); I12.9 Hypertensive chronic kidney disease with stage 1 through stage 4 chronic kidney disease, or unspecified chronic kidney disease; N18.9 Chronic kidney disease, unspecified; N17.9 Acute kidney failure, unspecified; Z86.718 Personal history of other venous thrombosis and embolism; R06.00 Dyspnea, unspecified; N40.0 Benign prostatic hyperplasia without lower urinary tract symptoms; E78.5 Hyperlipidemia, unspecified; F41.9 Anxiety disorder, unspecified; F32.A Depression, unspecified; Z79.899 Other long term (current) drug therapy; Z20.828 Contact with and (suspected) exposure to other viral communicable diseases; Z59.811 Housing instability, housed, with risk of homelessness
CPT/HCPCS: 36415; 71260; 80053; 83880; 84484; 85025; 85027; 85379; 85610; 85730; 93005; 93041; 93268; 93306; 93970; 94760; 96360; 96372; 96374; 96375; 99285; J1170; J1644; J1650; J2270; J2405; Q3014; A9270-GY; G0378